=== PATIENT | female | born 1965 | race American Indian/Alaskan Native ===

== ENCOUNTER 2017-09-24 19:15 | Inpatient (IN) | payer MEDICARE ==
[2017-09-24 19:53] LABS: Basophils % (Auto) 0.2 % (0.0-1.8); Hematocrit 47.9 % (30.3-42.9); Hemoglobin 16.1 gm/dl (10.1-14.3); Mean Corpuscular HGB Conc 34 % (30-34); Mean Corpuscular Hemoglobin 31 pg (28-32); Mean Corpuscular Volume 93 fl (79-97); Platelet Count 269 K/mm3 (140-440); Red Blood Count 5.15 M/mm3 (3.65-5.03); Red Cell Distribution Width 15.2 % (13.2-15.2); White Blood Count 18.7 K/mm3 (4.5-11.0)
[2017-09-24 20:15] LABS: Alanine Aminotransferase 14 units/L (7-56); Albumin 4.9 g/dL (3.9-5); Albumin/Globulin Ratio 1.4 %; Alkaline Phosphatase 75 units/L (35-129); Anion Gap 28 mmol/L; BUN/Creatinine Ratio 21; Blood Urea Nitrogen 15 mg/dL (7-17); Carbon Dioxide 23 mmol/L (22-30); Chloride 86.1 mmol/L (98-107); Glucose 474 mg/dL (65-100); Potassium 3.7 mmol/L (3.6-5.0); Sodium 133 mmol/L (137-145); Total Protein 8.3 g/dL (6.3-8.2)
[2017-09-24 21:28] LABS: Urine Drugs of Abuse Note Disclamer
[2017-09-24 21:38] LABS: Bilirubin,Urine NEG (Negative); Blood,Urine NEG (Negative); Ketones,Urine 20 mg/dL (Negative); Leukocyte Esterase,Urine NEG (Negative); Nitrite,Urine NEG (Negative); Urobilinogen,Urine < 2.0 mg/dL (<2.0)
[2017-09-24] MEDS ORDERED: NACL 0.9% 1000 ML 1,000 ML ONE (21:45)
[2017-09-24] MEDS ORDERED: NACL 0.9% 1000 ML 1,000 ML IV ONE (21:54)
--- NOTE | 2017-09-24 22:54 | XRay Report ---
FINAL REPORT EXAM: XR CXR CLINICAL INDICATIONS: SOB FINDINGS: Frontal and lateral views of the chest were acquired. The heart is normal in size. The lungs appear clear. The pulmonary vasculature is within normal limits. IMPRESSION: NO ACTIVE DISEASE IN THE CHEST
[2017-09-25] MEDS ORDERED: MORPHINE IV ONE (00:13)
[2017-09-25] MEDS ORDERED: ZOFRAN IV ONE (00:13)
--- NOTE | 2017-09-25 00:19 | Emergency Department Report ---
<PASTORA GARCIA T - Last Filed: 09/25/17 03:07> ED Abdominal Pain HPI - General Chief Complaint: Dyspnea/Respdistress Stated Complaint: SOB Time Seen by Provider: 09/24/17 23:53 Source: patient Mode of arrival: Ambulatory Limitations: No Limitations - History of Present Illness Initial Comments: 52 yo female who comes in today due to abdominal pain. She states that she has had this pain as well as not being able to eat times three days. Denies any surgical history, but does admit to a history of diabetes and hypertension. Denies any dysuria, bloody stools, or diarrhea. MD Complaint: abdominal pain -: days(s) (3) Location: diffuse Radiation: none Migration to: no migration Severity: moderate Severity scale (0 -10): 6 Quality: aching, sharp Consistency: constant Improves With: nothing Worsens With: eating Context: other (none) Associated Symptoms: nausea, vomiting Treatments Prior to Arrival: other (none) - Related Data Home Medications Medication Instructions Recorded Confirmed Last Taken Benztropine [Cogentin] 1 mg PO BID 09/25/17 09/25/17 Unknown LORazepam [Ativan] 0.5 mg PO BID 09/25/17 09/25/17 Unknown Perphenazine 8 mg PO QAM 09/25/17 09/25/17 Unknown Perphenazine 16 mg PO QHS 09/25/17 09/25/17 Unknown Quetiapine Fumarate [Seroquel] 400 mg PO BID 09/25/17 09/25/17 Unknown Simvastatin 20 mg PO QHS 09/25/17 09/25/17 Unknown glipiZIDE [Glipizide] 5 mg PO BID 09/25/17 09/25/17 Unknown metFORMIN [Glucophage] 1,000 mg PO BID 09/25/17 09/25/17 Unknown Allergies Allergy/AdvReac Type Severity Reaction Status Date / Time No Known Allergies Allergy Verified 09/24/17 19:21 ED Review of Systems ROS: Stated complaint: SOB Other details as noted in HPI Constitutional: denies: chills, fever Eyes: denies: eye pain, eye discharge, vision change ENT: denies: ear pain, throat pain Respiratory: denies: cough, shortness of breath, wheezing Cardiovascular: denies: chest pain, palpitations Endocrine: no symptoms reported Gastrointestinal: as per HPI, abdominal pain, nausea Genitourinary: denies: urgency, dysuria, discharge Musculoskeletal: denies: back pain, joint swelling, arthralgia Skin: denies: rash, lesions Neurological: denies: headache, weakness, paresthesias Psychiatric: denies: anxiety, depression Hematological/Lymphatic: denies: easy bleeding, easy bruising ED Past Medical Hx - Past Medical History Previous Medical History?: Yes Hx Psychiatric Treatment: Yes Additional medical history: Heart problem - Surgical History Past Surgical History?: Yes - Social History Smoking Status: Never Smoker Substance Use Type: None - Medications Home Medications: Home Medications Medication Instructions Recorded Confirmed Last Taken Type Benztropine [Cogentin] 1 mg PO BID 09/25/17 09/25/17 Unknown History LORazepam [Ativan] 0.5 mg PO BID 09/25/17 09/25/17 Unknown History Perphenazine 8 mg PO QAM 09/25/17 09/25/17 Unknown History Perphenazine 16 mg PO QHS 09/25/17 09/25/17 Unknown History Quetiapine Fumarate [Seroquel] 400 mg PO BID 09/25/17 09/25/17 Unknown History Simvastatin 20 mg PO QHS 09/25/17 09/25/17 Unknown History glipiZIDE [Glipizide] 5 mg PO BID 09/25/17 09/25/17 Unknown History metFORMIN [Glucophage] 1,000 mg PO BID 09/25/17 09/25/17 Unknown History ED Physical Exam - General Limitations: No Limitations General appearance: anxious - Head Head exam: Present: atraumatic, normocephalic - Eye Eye exam: Present: normal appearance - ENT ENT exam: Present: mucous membranes moist - Neck Neck exam: Present: normal inspection - Respiratory Respiratory exam: Present: normal lung sounds bilaterally. Absent: respiratory distress - Cardiovascular Cardiovascular Exam: Present: regular rate, normal rhythm. Absent: systolic murmur, diastolic murmur, rubs, gallop - GI/Abdominal GI/Abdominal exam: Present: tenderness (diffusely ), hypoactive bowel sounds - Rectal Rectal exam: Present: deferred - Extremities Exam Extremities exam: Present: normal inspection - Back Exam Back exam: Present: normal inspection - Neurological Exam Neurological exam: Present: alert, oriented X3 - Psychiatric Psychiatric exam: Present: anxious - Skin Skin exam: Present: warm, dry, intact, normal color. Absent: rash ED Course Vital Signs 09/24/17 09/24/17 09/24/17 19:21 21:45 23:09 Temperature 99.6 F 99.0 F Pulse Rate 89 81 Respiratory 24 16 18 Rate Blood Pressure 179/103 154/98 [Right] O2 Sat by Pulse 97 98 99 Oximetry 09/25/17 01:46 Temperature Pulse Rate Respiratory 18 Rate Blood Pressure [Right] O2 Sat by Pulse Oximetry - Reevaluation(s) Reevaluation #1: 09/25/17 02:41 I spoke with the hospitalist about admitting the patient. Imaging pending. Care transferred to Dr. Pool. ED Medical Decision Making - Lab Data Result diagrams: 09/24/17 19:35 09/24/17 19:35 - EKG Data -: EKG Interpreted by Me EKG shows normal: sinus rhythm Rate: normal - EKG Data When compared to previous EKG there are: previous EKG unavailable Interpretation: no acute changes - Radiology Data Radiology results: report reviewed Chest radiograph-negative for any acute pathology - Medical Decision Making Altered mental status Hyperglycemia/diabetes mellitus Dehydration - Differential Diagnosis altered mental status, hyperglycemia/diabetes mellitus, dehydration Critical care attestation.: If time is entered above; I have spent that time in minutes in the direct care of this critically ill patient, excluding procedure time. ED Disposition Clinical Impression: Abdominal pain Altered mental state Qualifiers: Altered mental status type: unspecified Qualified Code(s): R41.82 - Altered mental status, unspecified Disposition: DC-09 OP ADMIT IP TO THIS HOSP Is pt being admited?: Yes Does the pt Need Aspirin: No Condition: Stable Referrals: KENYON OLVERA MD [Primary Care Provider] - 3-5 Days <ONESIMO HUNTLEY - Last Filed: 09/25/17 06:16> ED Medical Decision Making - Lab Data Result diagrams: 09/24/17 19:35 09/24/17 19:35 - Medical Decision Making CT HEAD:NEGATIVE CT ABD/PELVIS:NEGATIVE ED Disposition Time of Disposition: 06:15 (DR LOPES PAGE AND RESULTS OF CT DISCUSSED AND SHE WILL ADMIT HER TO THE HOSPITAL)
[2017-09-25] MEDS ORDERED: NACL 0.9% 1000 ML 1,000 ML IV ONE ×2 (02:40→06:09)
--- NOTE | 2017-09-25 03:24 | Cat Scan Report ---
FINAL REPORT EXAM: CT HEAD/BRAIN WO CON HISTORY: altered mental status TECHNIQUE: Routine axial imaging was obtained of the brain without IV contrast. FINDINGS: The ventricular system is appropriate in size and is symmetric. There is no evidence of acute stroke or hemorrhage. There are no extra-axial fluid collections. The sinuses reveal mild mucosal thickening in the left maxillary sinus. The mastoid air cells are well pneumatized. The calvarium appears intact. IMPRESSION: No evidence of acute stroke or hemorrhage. Mucosal thickening in the left maxillary sinus
--- NOTE | 2017-09-25 03:32 | Cat Scan Report ---
FINAL REPORT EXAM: CT ABDOMEN PELVIS W CON HISTORY: abdominal pain TECHNIQUE: Routine axial imaging was obtained of the abdomen and pelvis following the intravenous injection of iodinated contrast. Delayed imaging was also obtained for evaluation of the kidneys and renal collecting structures. Sagittal and coronal reconstructions were reviewed FINDINGS: The lung bases are clear. Pleural fluid is not seen. The liver is normal size reveals slightly diminished attenuation suggesting hepatic steatosis. There are no focal hepatic lesions. The gallbladder, pancreas, spleen, and adrenal glands appear normal. The kidneys enhance normally. There is no evidence of hydronephrosis. The vascular structures enhance normally also. The bowel loops are normal in caliber and course. The appendix is not enlarged. There is no evidence of free fluid or adenopathy. In the pelvis the uterus and bladder appear normal. There are no adnexal masses or fluid collections. The skeletal structures reveal multilevel disc degeneration with facet arthropathy changes in the lumbar spine. IMPRESSION: No acute process in the abdomen and pelvis. Hepatic steatosis.
[2017-09-25] MEDS ORDERED: VANCOMYCIN/NS 1 GM/250 ML 1 GM/250 ML BAG IV ONE (06:12)
[2017-09-25] MEDS: ZOSYN/NS 4.5GM/100ML 4.5 GM/100 ML VIAL IV SCH ×2 (07:53→15:15)
--- NOTE | 2017-09-25 08:14 | History and Physical Report ---
History of Present Illness Date of examination: 09/25/17 Date of admission: 09/25/2017 Chief complaint: chief complaint: Abdominal pain for 3 days. History of present illness: history of present illness:52-year-old -[place] female with history of hypertension, hyperlipidemia and type 2 diabetes comes in for acute abdominal pain of 3 days' duration. Pain is periumbilical and diffuse. Pain is sharp and intermittent in nature. Pain is 10 over 10 associated with nausea. no vomiting or diarrhea.No fever no chills.No exacerbating or relieving factors.First episode of pain. Review of System: Constitutional: no fever, no chills, no weight loss Ears, eyes, nose, mouth and throat: no nasal congestion, no nasal discharge, no sinus pressure, no vision change, no red eye. Neck: No neck pain or rigidity. Cardiovascular: No chest pain, no orthopnea, no palpitations, no leg swelling Respiratory: No shortness of breath, no cough, no congestion, no wheezing Gastrointestinal: abdominal pain, nausea,present no vomiting Genitourinary : no dysuria, no hematuria Musculoskeletal: no joint swelling or muscle ache Integumentary: no rash, no pruritis Neurological: no parathesias, no numbness, no tingling Endocrine: no cold or heat intolerance, no polyuria or polydipsia Hematologic/Lymphatic: no easy bruising, no easy bleeding, no gland swelling Allergic/Immunologic: no urticaria, no angioedema. Past History Past Medical History: diabetes, hypertension, hyperlipidemia Past Surgical History: No surgical history Social history: lives with family, full code Family history: hypertension Medications and Allergies Allergies Allergy/AdvReac Type Severity Reaction Status Date / Time No Known Allergies Allergy Verified 09/24/17 19:21 Home Medications Medication Instructions Recorded Confirmed Last Taken Type Benztropine [Cogentin] 1 mg PO BID 09/25/17 09/25/17 Unknown History LORazepam [Ativan] 0.5 mg PO BID 09/25/17 09/25/17 Unknown History Perphenazine 8 mg PO QAM 09/25/17 09/25/17 Unknown History Perphenazine 16 mg PO QHS 09/25/17 09/25/17 Unknown History Quetiapine Fumarate [Seroquel] 400 mg PO BID 09/25/17 09/25/17 Unknown History Simvastatin 20 mg PO QHS 09/25/17 09/25/17 Unknown History glipiZIDE [Glipizide] 5 mg PO BID 09/25/17 09/25/17 Unknown History metFORMIN [Glucophage] 1,000 mg PO BID 09/25/17 09/25/17 Unknown History Active Meds: Active Medications Sodium Chloride (Nacl 0.9% 1000 Ml) 1,000 mls @ 125 mls/hr IV ONCE ONE Stop: 09/25/17 10:39 Piperacillin Sod/Tazobactam Sod (Zosyn/Ns 4.5gm/100ml) 4.5 gm in 100 mls @ 200 mls/hr IV Q8HR MERLINE PRN Reason: Protocol Last Admin: 09/25/17 07:53 Dose: 200 mls/hr Review of Systems All systems: negative Exam - Constitutional Vitals: Temp Pulse Resp BP Pulse Ox 98.1 F 78 16 149/74 100 09/25/17 07:55 09/25/17 07:55 09/25/17 07:55 09/25/17 07:55 09/25/17 07:55 General appearance: Present: no acute distress, well-nourished - EENT Eyes: Present: PERRL ENT: hearing intact, clear oral mucosa - Neck Neck: Present: supple, normal ROM - Respiratory Respiratory effort: normal Respiratory: bilateral: CTA - Cardiovascular Rhythm: regular (80) Heart Sounds: Present: S1 & S2. Absent: rub, click - Extremities Extremities: no ischemia, pulses intact, pulses symmetrical, No edema Peripheral Pulses: within normal limits - Abdominal General gastrointestinal: Present: tender, non-distended, normal bowel sounds, other (no guarding or rigidity) Localized gastrointestinal: tender: epigastric periumbilical, guarding: epigastric periumbilical Female genitourinary: Present: deferred, normal - Integumentary Integumentary: Present: clear, warm, dry - Musculoskeletal Musculoskeletal: gait normal, strength equal bilaterally - Psychiatric Psychiatric: appropriate mood/affect, intact judgment & insight - Neurologic Neurologic: CNII-XII intact, moves all extremities - Allied Health Allied health notes reviewed: nursing, case management Results - Labs CBC & Chem 7: 09/26/17 04:09 09/24/17 19:35 Labs: Laboratory Last Values WBC 18.7 K/mm3 (4.5-11.0) H 09/24/17 19:35 RBC 5.15 M/mm3 (3.65-5.03) H 09/24/17 19:35 Hgb 16.1 gm/dl (10.1-14.3) H 09/24/17 19:35 Hct 47.9 % (30.3-42.9) H 09/24/17 19:35 MCV 93 fl (79-97) 09/24/17 19:35 MCH 31 pg (28-32) 09/24/17 19:35 MCHC 34 % (30-34) 09/24/17 19:35 RDW 15.2 % (13.2-15.2) 09/24/17 19:35 Plt Count 269 K/mm3 (140-440) 09/24/17 19:35 Lymph % (Auto) 8.7 % (13.4-35.0) L 09/24/17 19:35 Ross % (Auto) 8.1 % (0.0-7.3) H 09/24/17 19:35 Eos % (Auto) 0.0 % (0.0-4.3) 09/24/17 19:35 Baso % (Auto) 0.2 % (0.0-1.8) 09/24/17 19:35 Lymph # 1.6 K/mm3 (1.2-5.4) 09/24/17 19:35 Ross # 1.5 K/mm3 (0.0-0.8) H 09/24/17 19:35 Eos # 0.0 K/mm3 (0.0-0.4) 09/24/17 19:35 Baso # 0.0 K/mm3 (0.0-0.1) 09/24/17 19:35 Seg Neutrophils % 83.0 % (40.0-70.0) H 09/24/17 19:35 Seg Neutrophils # 15.5 K/mm3 (1.8-7.7) H 09/24/17 19:35 VBG pH 7.506 (7.320-7.420) H 09/24/17 19:35 Sodium 133 mmol/L (137-145) L 09/24/17 19:35 Potassium 3.7 mmol/L (3.6-5.0) 09/24/17 19:35 Chloride 86.1 mmol/L (98-107) L 09/24/17 19:35 Carbon Dioxide 23 mmol/L (22-30) 09/24/17 19:35 Anion Gap 28 mmol/L 09/24/17 19:35 BUN 15 mg/dL (7-17) 09/24/17 19:35 Creatinine 0.7 mg/dL (0.7-1.2) 09/24/17 19:35 Estimated GFR > 60 ml/min 09/24/17 19:35 BUN/Creatinine Ratio 21 % 09/24/17 19:35 Glucose 474 mg/dL (65-100) H 09/24/17 19:35 POC Glucose 285 (70-105) H 09/25/17 07:49 Lactic Acid 0.90 mmol/L (0.7-2.0) 09/25/17 06:23 Calcium 10.0 mg/dL (8.4-10.2) 09/24/17 19:35 Magnesium 1.90 mg/dL (1.7-2.3) 09/24/17 19:35 Total Bilirubin 0.40 mg/dL (0.1-1.2) 09/24/17 19:35 AST 12 units/L (5-40) 09/24/17 19:35 ALT 14 units/L (7-56) 09/24/17 19:35 Alkaline Phosphatase 75 units/L (35-129) 09/24/17 19:35 Troponin T < 0.010 ng/mL (0.00-0.029) 09/24/17 19:35 NT-Pro-B Natriuret Pep 293.9 pg/mL (0-900) 09/24/17 19:35 Total Protein 8.3 g/dL (6.3-8.2) H 09/24/17 19:35 Albumin 4.9 g/dL (3.9-5) 09/24/17 19:35 Albumin/Globulin Ratio 1.4 % 09/24/17 19:35 TSH 1.770 mlU/mL (0.270-4.200) 09/24/17 19:35 HCG, Qual Negative (Negative) 09/24/17 19:35 Urine Color Yellow (Yellow) 09/24/17 21:25 Urine Turbidity Clear (Clear) 09/24/17 21:25 Urine pH 6.0 (5.0-7.0) 09/24/17 21:25 Ur Specific [place] 1.037 (1.003-1.030) H 09/24/17 21:25 Urine Protein 100 mg/dl mg/dL (Negative) 09/24/17 21:25 Urine Glucose (UA) >=500 mg/dL (Negative) 09/24/17 21:25 Urine Ketones 20 mg/dL (Negative) 09/24/17 21:25 Urine Blood Neg (Negative) 09/24/17 21:25 Urine Nitrite Neg (Negative) 09/24/17 21:25 Urine Bilirubin Neg (Negative) 09/24/17 21:25 Urine Urobilinogen < 2.0 mg/dL (<2.0) 09/24/17 21:25 Ur Leukocyte Esterase Neg (Negative) 09/24/17 21:25 Urine WBC (Auto) 1.0 /HPF (0.0-6.0) 09/24/17 21:25 Urine RBC (Auto) 3.0 /HPF (0.0-6.0) 09/24/17 21:25 U Epithel Cells (Auto) 3.0 /HPF (0-13.0) 09/24/17 21:25 Salicylates < 0.3 mg/dL (2.8-20.0) L 09/24/17 19:35 Urine Opiates Screen Presumptive negative 09/24/17 21:25 Urine Methadone Screen Presumptive negative 09/24/17 21:25 Acetaminophen < 15.0 ug/mL (10.0-30.0) 09/24/17 19:35 Ur Barbiturates Screen Presumptive negative 09/24/17 21:25 Ur Phencyclidine Scrn Presumptive negative 09/24/17 21:25 Ur Amphetamines Screen Presumptive negative 09/24/17 21:25 U Benzodiazepines Scrn Presumptive negative 09/24/17 21:25 Urine Cocaine Screen Presumptive negative 09/24/17 21:25 U Marijuana (THC) Screen Presumptive negative 09/24/17 21:25 Drugs of Abuse Note Disclamer 09/24/17 21:25 Plasma/Serum Alcohol < 0.01 gm% (0-0.07) 09/24/17 19:35 Short CBC 09/26/17 Range/Units 04:09 WBC 10.1 (4.5-11.0) K/mm3 Hgb 14.2 (10.1-14.3) gm/dl Hct 42.2 (30.3-42.9) % Plt Count 190 (140-440) K/mm3 - Imaging and Cardiology CT scan - abdomen: report reviewed (negative no abnormal findings) CT Scan - head: report reviewed (negative no abnormal findings) Assessment and Plan Advance Directives: Yes (full code) VTE prophylaxis?: Chemical Plan of care discussed with patient/family: Yes - Patient Problems (1) Acute abdominal pain Current Visit: Yes Status: Acute Plan to address problem: patient is tender all over the abdomen. CAT scan is noncontributory. Will reevaluate. Symptomatic treatment in the mean Not consistent with cholecystitis . Possible left lower quadrant diverticulosis. Surgical consult by requested (2) Hypertension Current Visit: Yes Status: Chronic Qualifiers: Hypertension type: essential hypertension Qualified Code(s): I10 - Essential (primary) hypertension Plan to address problem: continue antihypertensives. (3) T2DM (type 2 diabetes mellitus) Current Visit: Yes Status: Chronic Qualifiers: Diabetes mellitus complication status: without complication Plan to address problem: check hemoglobin A1c and coverage. (4) Bipolar disorder Current Visit: Yes Status: Chronic Plan to address problem: patient is to get seroquel 400mg twice a day (5) Hyperlipidemia Current Visit: Yes Status: Chronic Qualifiers: Hyperlipidemia type: mixed hyperlipidemia Qualified Code(s): E78.2 - Mixed hyperlipidemia Plan to address problem: continue statins in the form of simvastatin (6) DVT prophylaxis Current Visit: Yes Status: Acute Plan to address problem: on Lovenox 40 mg subcutaneous daily or warfarin
[2017-09-25] MEDS ORDERED: DULCOLAX PR PRN (08:15)
[2017-09-25] MEDS ORDERED: TYLENOL PO PRN (08:15)
[2017-09-25] MEDS ORDERED: MILK OF MAGNESIA PO PRN (08:15)
[2017-09-25] MEDS ORDERED: ZOFRAN IV PRN (08:15)
[2017-09-25] MEDS ORDERED: NON-FORMULARY (Quetiapine Fumarate [Seroquel] 400 MG) PO SCH (10:00)
[2017-09-25] MEDS: LOVENOX SUB-Q SCH (17:45)
[2017-09-25] MEDS: MORPHINE IV PRN (21:01)
[2017-09-26 04:48] LABS: Basophils % (Auto) 0.2 % (0.0-1.8); Eosinophils % (Auto) 0.2 % (0.0-4.3); Hematocrit 42.2 % (30.3-42.9); Hemoglobin 14.2 gm/dl (10.1-14.3); Mean Corpuscular HGB Conc 34 % (30-34); Mean Corpuscular Hemoglobin 32 pg (28-32); Mean Corpuscular Volume 94 fl (79-97); Platelet Count 190 K/mm3 (140-440); Red Blood Count 4.51 M/mm3 (3.65-5.03); Red Cell Distribution Width 15.1 % (13.2-15.2); White Blood Count 10.1 K/mm3 (4.5-11.0)
[2017-09-26 05:15] LABS: Alanine Aminotransferase 11 units/L (7-56); Albumin 3.8 g/dL (3.9-5); Albumin/Globulin Ratio 1.3 %; Alkaline Phosphatase 56 units/L (35-129); Anion Gap 16 mmol/L; BUN/Creatinine Ratio 20; Blood Urea Nitrogen 10 mg/dL (7-17); Calcium 8.7 mg/dL (8.4-10.2); Carbon Dioxide 27 mmol/L (22-30); Chloride 99.9 mmol/L (98-107); Glucose 259 mg/dL (65-100); Sodium 140 mmol/L (137-145); Total Protein 6.8 g/dL (6.3-8.2)
[2017-09-26] MEDS: ZOSYN/NS 4.5GM/100ML 4.5 GM/100 ML VIAL IV SCH ×4 (05:41→23:56)
[2017-09-26] MEDS: NACL 0.9% 1000 ML 1,000 ML IV SCH ×2 (05:59→20:07)
--- NOTE | 2017-09-26 09:15 | Consultation ---
HISTORY OF PRESENT ILLNESS: This patient apparently was admitted by Dr. Narvaez because of nonspecific pain to the throat and to the neck, to the abdomen, to the chest and the pelvic area. The patient had multiple CT scans including a head CT, abdomen and pelvis, all were negative. Her chest x-ray was negative. To me, examination did not reveal anything specific. I was told that she was in the psychiatric hospital on multiple occasions in the past and she is on Ativan and on Seroquel. She is a known case of diabetic. She is on glipizide for that. She is on metformin. Her main complaint is pain in the throat area. ALLERGIES: Allergic reaction was denied. PHYSICAL EXAMINATION: GENERAL: A preserved obese black female. She is in no distress. Her main complaint was pain in the neck area. HEAD AND NECK: Neck is supple. BREASTS: Symmetric. No evidence of specific masses. CHEST: Essentially clear to me. HEART: Sounds are normal. ABDOMEN: Protuberant, soft, benign. EXTREMITIES: Showed no edema. IMPRESSION AND PLAN: Abdominal pain and throat pain, the etiology of which is unknown. I do not think they are related to each other. Noted, however, her sugar was high at 495. I believe this needs to be addressed and her white count is 18.7. Continue that per Dr. Narvaez to address. There is no evidence of surgical problem at the present time with this patient. JOB# [id number] SAVANNAH/ZO
--- NOTE | 2017-09-26 10:35 | Ultrasound Report ---
Sonogram right upper quadrant colon History: Upper abdominal pain. Findings: Normal aorta measures 1.8 cm. The fatty liver. No intrahepatic or extrahepatic duct dilatation. Common bile duct diameter 5.1 mm. Gallbladder wall thickness 1.6 mm. No calculi in the gallbladder. Right kidney 7.6 x 4.9 x 5.9 cm. Cortical thickness 1.7 cm. Pancreas obscured by bowel gas. Impression: Fatty liver.
[2017-09-26] MEDS ORDERED: D50W (25GM) Syringe IV PRN (13:19)
--- NOTE | 2017-09-26 13:20 | Progress Note ---
Subjective Narrative: doing OK abd soft Pt is hungry , no neck pain ,sonogram thick GB wall 1.5 mm , sugar 295 , will check with Hida scan . will cver sugar with insulin , Objective Vital Signs - 12hr 09/26/17 09/26/17 09/26/17 04:17 07:27 12:04 Temperature 99.1 F 99.0 F 98.1 F Pulse Rate 80 73 75 Respiratory 20 18 20 Rate Blood Pressure 133/70 140/90 144/80 O2 Sat by Pulse 99 95 91 Oximetry - Labs 09/26/17 04:09 09/26/17 04:09 Diabetes panel 09/26/17 Range/Units 04:09 Sodium 140 D (137-145) mmol/L Potassium 3.0 L (3.6-5.0) mmol/L Chloride 99.9 (98-107) mmol/L Carbon Dioxide 27 (22-30) mmol/L BUN 10 (7-17) mg/dL Creatinine 0.5 L (0.7-1.2) mg/dL Glucose 259 H (65-100) mg/dL Calcium 8.7 (8.4-10.2) mg/dL AST 11 (5-40) units/L ALT 11 (7-56) units/L Alkaline Phosphatase 56 (35-129) units/L Total Protein 6.8 (6.3-8.2) g/dL Albumin 3.8 L (3.9-5) g/dL Calcium panel 09/26/17 Range/Units 04:09 Calcium 8.7 (8.4-10.2) mg/dL Albumin 3.8 L (3.9-5) g/dL Pituitary panel 09/26/17 Range/Units 04:09 Sodium 140 D (137-145) mmol/L Potassium 3.0 L (3.6-5.0) mmol/L Chloride 99.9 (98-107) mmol/L Carbon Dioxide 27 (22-30) mmol/L BUN 10 (7-17) mg/dL Creatinine 0.5 L (0.7-1.2) mg/dL Glucose 259 H (65-100) mg/dL Calcium 8.7 (8.4-10.2) mg/dL Adrenal panel 09/26/17 Range/Units 04:09 Sodium 140 D (137-145) mmol/L Potassium 3.0 L (3.6-5.0) mmol/L Chloride 99.9 (98-107) mmol/L Carbon Dioxide 27 (22-30) mmol/L BUN 10 (7-17) mg/dL Creatinine 0.5 L (0.7-1.2) mg/dL Glucose 259 H (65-100) mg/dL Calcium 8.7 (8.4-10.2) mg/dL Total Bilirubin 0.40 (0.1-1.2) mg/dL AST 11 (5-40) units/L ALT 11 (7-56) units/L Alkaline Phosphatase 56 (35-129) units/L Total Protein 6.8 (6.3-8.2) g/dL Albumin 3.8 L (3.9-5) g/dL
[2017-09-26] MEDS: NOVOLOG SUB-Q SCH ×2 (13:52→16:40)
[2017-09-26] MEDS: LOVENOX SUB-Q SCH (13:56)
[2017-09-26] MEDS ORDERED: APRESOLINE IV PRN (14:07)
[2017-09-26] MEDS: AUGMENTIN 875 MG PO SCH ×2 (14:50→23:57)
[2017-09-26] MEDS: MORPHINE IV PRN (15:26)
[2017-09-26] MEDS ORDERED: GLUCOPHAGE PO SCH (20:00)
[2017-09-26] MEDS: GLUCOTROL PO SCH (20:06)
--- NOTE | 2017-09-26 20:48 | Progress Note ---
Assessment and Plan Assessment and plan: 52-year-old -[place] female with history of hypertension, hyperlipidemia and type 2 diabetes comes in for acute abdominal pain of 3 days' duration. Pain is periumbilical and diffuse. Pain is sharp and intermittent in nature. Pain is 10 over 10 associated with nausea. no vomiting or diarrhea.No fever no chills.No exacerbating or relieving factors Peritoneal irritation- Resolved Hypertension urgency- Resolving Atypical chest pain- Likely secondary to GERD Diabetes Mellitus with Hyperglycemia Hyperlipidemia Pleural nodule Bipolar Disorder Hypertension. Plan: Supportive care Pain control Gall bladder evaluation D.W surgery Resume home med CT scan obtained and negative for PE Restart insulin and monitor blood sugar pain control GI cocktail dvt/gi Prophy History Interval history: Patient seen and examined reports reflux type pain, Denies any abdominal pain, denies chest pain, nausea, or vomiting. Hospitalist Physical - Constitutional Vitals: Temp Pulse Resp BP Pulse Ox 99.8 F H 77 16 130/65 91 09/26/17 18:47 09/26/17 18:47 09/26/17 18:47 09/26/17 18:47 09/26/17 18:47 General appearance: Present: no acute distress, well-nourished, obese - EENT Eyes: Present: PERRL, EOM intact ENT: hearing intact - Neck Neck: Present: supple, normal ROM - Respiratory Respiratory effort: normal Respiratory: bilateral: CTA - Cardiovascular Rhythm: regular Heart Sounds: Present: S1 & S2. Absent: systolic murmur, diastolic murmur - Extremities Extremities: no ischemia, pulses intact, pulses symmetrical, No edema, normal temperature, normal color, Full ROM Peripheral Pulses: within normal limits - Abdominal General gastrointestinal: soft, tender, non-distended Localized gastrointestinal: tender: RUQ - Integumentary Integumentary: Present: clear, warm, dry - Psychiatric Psychiatric: appropriate mood/affect, cooperative - Neurologic Neurologic: CNII-XII intact, moves all extremities Results - Labs CBC & Chem 7: 09/27/17 05:19 09/27/17 04:25 Labs: Laboratory Last Values WBC 10.1 K/mm3 (4.5-11.0) 09/26/17 04:09 RBC 4.51 M/mm3 (3.65-5.03) 09/26/17 04:09 Hgb 14.2 gm/dl (10.1-14.3) 09/26/17 04:09 Hct 42.2 % (30.3-42.9) 09/26/17 04:09 MCV 94 fl (79-97) 09/26/17 04:09 MCH 32 pg (28-32) 09/26/17 04:09 MCHC 34 % (30-34) 09/26/17 04:09 RDW 15.1 % (13.2-15.2) 09/26/17 04:09 Plt Count 190 K/mm3 (140-440) 09/26/17 04:09 Lymph % (Auto) 29.3 % (13.4-35.0) 09/26/17 04:09 [place] % (Auto) 10.8 % (0.0-7.3) H 09/26/17 04:09 Eos % (Auto) 0.2 % (0.0-4.3) 09/26/17 04:09 Baso % (Auto) 0.2 % (0.0-1.8) 09/26/17 04:09 Lymph # 3.0 K/mm3 (1.2-5.4) 09/26/17 04:09 [place] # 1.1 K/mm3 (0.0-0.8) H 09/26/17 04:09 Eos # 0.0 K/mm3 (0.0-0.4) 09/26/17 04:09 Baso # 0.0 K/mm3 (0.0-0.1) 09/26/17 04:09 Seg Neutrophils % 59.5 % (40.0-70.0) 09/26/17 04:09 Seg Neutrophils # 6.0 K/mm3 (1.8-7.7) 09/26/17 04:09 D-Dimer 481.41 ng/mlDDU (0-234) H 09/26/17 14:37 VBG pH 7.506 (7.320-7.420) H 09/24/17 19:35 Sodium 140 mmol/L (137-145) D 09/26/17 04:09 Potassium 3.0 mmol/L (3.6-5.0) L 09/26/17 04:09 Chloride 99.9 mmol/L (98-107) 09/26/17 04:09 Carbon Dioxide 27 mmol/L (22-30) 09/26/17 04:09 Anion Gap 16 mmol/L 09/26/17 04:09 BUN 10 mg/dL (7-17) 09/26/17 04:09 Creatinine 0.5 mg/dL (0.7-1.2) L 09/26/17 04:09 Estimated GFR > 60 ml/min 09/26/17 04:09 BUN/Creatinine Ratio 20 % 09/26/17 04:09 Glucose 259 mg/dL (65-100) H 09/26/17 04:09 POC Glucose 247 (70-105) H 09/26/17 16:32 Hemoglobin A1c 10.4 % (4-6) H 09/25/17 08:48 Lactic Acid 0.90 mmol/L (0.7-2.0) 09/25/17 06:23 Calcium 8.7 mg/dL (8.4-10.2) 09/26/17 04:09 Magnesium 1.90 mg/dL (1.7-2.3) 09/24/17 19:35 Total Bilirubin 0.40 mg/dL (0.1-1.2) 09/26/17 04:09 AST 11 units/L (5-40) 09/26/17 04:09 ALT 11 units/L (7-56) 09/26/17 04:09 Alkaline Phosphatase 56 units/L (35-129) 09/26/17 04:09 Troponin T < 0.010 ng/mL (0.00-0.029) 09/26/17 14:37 NT-Pro-B Natriuret Pep 293.9 pg/mL (0-900) 09/24/17 19:35 Total Protein 6.8 g/dL (6.3-8.2) 09/26/17 04:09 Albumin 3.8 g/dL (3.9-5) L 09/26/17 04:09 Albumin/Globulin Ratio 1.3 % 09/26/17 04:09 TSH 1.770 mlU/mL (0.270-4.200) 09/24/17 19:35 HCG, Qual Negative (Negative) 09/24/17 19:35 Urine Color Yellow (Yellow) 09/24/17 21:25 Urine Turbidity Clear (Clear) 09/24/17 21:25 Urine pH 6.0 (5.0-7.0) 09/24/17 21:25 Ur Specific [place] 1.037 (1.003-1.030) H 09/24/17 21:25 Urine Protein 100 mg/dl mg/dL (Negative) 09/24/17 21:25 Urine Glucose (UA) >=500 mg/dL (Negative) 09/24/17 21:25 Urine Ketones 20 mg/dL (Negative) 09/24/17 21:25 Urine Blood Neg (Negative) 09/24/17 21:25 Urine Nitrite Neg (Negative) 09/24/17 21:25 Urine Bilirubin Neg (Negative) 09/24/17 21:25 Urine Urobilinogen < 2.0 mg/dL (<2.0) 09/24/17 21:25 Ur Leukocyte Esterase Neg (Negative) 09/24/17 21:25 Urine WBC (Auto) 1.0 /HPF (0.0-6.0) 09/24/17 21:25 Urine RBC (Auto) 3.0 /HPF (0.0-6.0) 09/24/17 21:25 U Epithel Cells (Auto) 3.0 /HPF (0-13.0) 09/24/17 21:25 Salicylates < 0.3 mg/dL (2.8-20.0) L 09/24/17 19:35 Urine Opiates Screen Presumptive negative 09/24/17 21:25 Urine Methadone Screen Presumptive negative 09/24/17 21:25 Acetaminophen < 15.0 ug/mL (10.0-30.0) 09/24/17 19:35 Ur Barbiturates Screen Presumptive negative 09/24/17 21:25 Ur Phencyclidine Scrn Presumptive negative 09/24/17 21:25 Ur Amphetamines Screen Presumptive negative 09/24/17 21:25 U Benzodiazepines Scrn Presumptive negative 09/24/17 21:25 Urine Cocaine Screen Presumptive negative 09/24/17 21:25 U Marijuana (THC) Screen Presumptive negative 09/24/17 21:25 Drugs of Abuse Note Disclamer 09/24/17 21:25 Plasma/Serum Alcohol < 0.01 gm% (0-0.07) 09/24/17 19:35 - Imaging and Cardiology CT scan - chest: image reviewed (NO PE)
[2017-09-26] MEDS ORDERED: TRILAFON PO SCH (22:00)
[2017-09-26] MEDS: LEVEMIR SUB-Q SCH (22:00)
[2017-09-26] MEDS ORDERED: NON-FORMULARY (Simvastatin [Simvastatin] 20 MG) PO SCH (22:00)
[2017-09-26] MEDS ORDERED: NACL ONE (22:21)
--- NOTE | 2017-09-26 23:35 | Cat Scan Report ---
FINAL REPORT EXAM: CT ANGIO CHEST HISTORY: elevated for pe. dyspena COMPARISON: Chest x-ray from September 24, 2017. TECHNIQUE: Contiguous axial images were obtained. Additional sagittal and coronal reformatted images were obtained. Administration of IV contrast given per institution protocol. Images submitted for interpretation. 100 cc Omnipaque 350. FINDINGS: Heart borderline enlarged. Thoracic aorta normal in caliber. No dissection. No pulmonary embolus. Small pocket a gas within the main pulmonary trunk likely relating to IV access. There are few prominent but technically not enlarged intrathoracic lymph nodes likely reactive. For example there is a right hilar lymph node measuring 14 x 8 millimeters. No enlarged axillary lymph nodes. Hypodense lesion at the inferior posterior margin right thyroid lobe measuring 1.3 x 0.7 centimeters. Mild linear atelectasis at the lung bases. At the lateral margin right upper lobe there is a subpleural nodule measuring 3-4 millimeters (series 3, image 34). No dense consolidation or effusion. Fatty infiltration of the liver. Mild wall thickening the distal esophagus which may relate to its decompressed state. Tiny hiatal hernia. Mild nodular thickening of adrenal glands. Mild degenerative changes of the thoracic spine. IMPRESSION: No pulmonary embolus. Thoracic aorta normal in caliber. No dissection. Mild linear atelectasis at the lung bases. No dense consolidation or effusion. 3 millimeter subpleural nodule right upper lobe which may be postinflammatory. If the patient has risk factors such as smoking, CT of the chest in 12 months would be suggested to ensure stability. Hypodense right thyroid lobe nodule. This could be further evaluated by thyroid ultrasound on a nonemergent basis.
[2017-09-26] MEDS: PRAVACHOL PO SCH (23:57)
[2017-09-26] MEDS: COGENTIN PO SCH (23:57)
[2017-09-26] MEDS: ATIVAN PO SCH (23:57)
[2017-09-26] MEDS: TRILAFON PO SCH (23:58)
[2017-09-27] MEDS: NOVOLOG SUB-Q SCH ×5 (00:14→22:04)
[2017-09-27 04:48] LABS: BUN/Creatinine Ratio 18; Blood Urea Nitrogen 9 mg/dL (7-17); Calcium 8.4 mg/dL (8.4-10.2); Carbon Dioxide 19 mmol/L (22-30); Chloride 100.8 mmol/L (98-107); Glucose 99 mg/dL (65-100); Sodium 135 mmol/L (137-145)
[2017-09-27 04:49] LABS: Anion Gap 19 mmol/L
[2017-09-27 05:36] LABS: Hematocrit 40.6 % (30.3-42.9); Hemoglobin 13.6 gm/dl (10.1-14.3); Mean Corpuscular HGB Conc 34 % (30-34); Mean Corpuscular Hemoglobin 32 pg (28-32); Mean Corpuscular Volume 94 fl (79-97); Platelet Count 180 K/mm3 (140-440); Red Blood Count 4.33 M/mm3 (3.65-5.03); Red Cell Distribution Width 14.8 % (13.2-15.2); White Blood Count 6.8 K/mm3 (4.5-11.0)
[2017-09-27] MEDS: ZOSYN/NS 4.5GM/100ML 4.5 GM/100 ML VIAL IV SCH (05:37)
[2017-09-27] MEDS ORDERED: TRILAFON PO SCH (10:00)
[2017-09-27] MEDS: NACL 0.9% 1000 ML 1,000 ML IV SCH (10:00)
[2017-09-27] MEDS: COGENTIN PO SCH ×2 (10:13→21:52)
[2017-09-27] MEDS: AUGMENTIN 875 MG PO SCH (10:13)
[2017-09-27] MEDS: GLUCOTROL PO SCH ×2 (10:13→18:18)
[2017-09-27] MEDS: TRILAFON PO SCH ×2 (10:14→21:52)
[2017-09-27] MEDS: ATIVAN PO SCH ×2 (10:14→21:52)
[2017-09-27] MEDS: LOVENOX SUB-Q SCH (10:14)
[2017-09-27] MEDS: FLAGYL PO SCH ×2 (14:10→21:52)
[2017-09-27] MEDS: PEPCID PO SCH ×2 (15:00→21:52)
--- NOTE | 2017-09-27 15:56 | Nuclear Medicine Report ---
Nuclear gallbladder scan: Epigastric pain and thickened gallbladder wall. Following injection of radionuclide imaging of the liver anteriorly is unremarkable. There is prompt excretion of activity in an apparently normal sized CBD with rapid excretion into the proximal bowel and partial filling of the gallbladder at 20 minutes. Impression: No evidence of cystic duct obstruction.
--- NOTE | 2017-09-27 18:39 | Progress Note ---
Assessment and Plan Assessment and plan: 52-year-old -[place] female with history of hypertension, hyperlipidemia and type 2 diabetes comes in for acute abdominal pain of 3 days' duration. Pain is periumbilical and diffuse. Pain is sharp and intermittent in nature. Pain is 10 over 10 associated with nausea. no vomiting or diarrhea.No fever no chills.No exacerbating or relieving factors Peritoneal irritation- Resolved Diarrhea- Possible colitis R/O CDIFF. Hypertension urgency- Resolving Atypical chest pain- Likely secondary to GERD Diabetes Mellitus with Hyperglycemia Hyperlipidemia Pleural nodule Bipolar Disorder Hypertension. Plan: Supportive care Pain control Isolation till C.DIFF ruled out Gall bladder evaluation D.W surgery Resume home med CT scan obtained and negative for PE Restart insulin and monitor blood sugar pain control GI cocktail dvt/gi Prophy History Interval history: Patient seen and examined reports reflux type pain, Nursing staff reports diarrhea. "Patients tells me that the bathroom condition has been bad where she has been staying and she has been standing to poop" Hospitalist Physical - Physical exam Narrative exam: General appearance: Present: no acute distress, well-nourished, obese - EENT Eyes: Present: PERRL, EOM intact ENT: hearing intact - Neck Neck: Present: supple, normal ROM - Respiratory Respiratory effort: normal Respiratory: bilateral: CTA - Cardiovascular Rhythm: regular Heart Sounds: Present: S1 & S2. Absent: systolic murmur, diastolic murmur - Extremities Extremities: no ischemia, pulses intact, pulses symmetrical, No edema, normal temperature, normal color, Full ROM Peripheral Pulses: within normal limits - Abdominal General gastrointestinal: soft, tender, non-distended Localized gastrointestinal: tender: RUQ - Integumentary Integumentary: Present: clear, warm, dry - Psychiatric Psychiatric: appropriate mood/affect, cooperative - Neurologic Neurologic: CNII-XII intact, moves all extremities - Constitutional Vitals: Temp Pulse Resp BP Pulse Ox 99.4 F 77 20 139/67 99 09/27/17 17:25 09/27/17 17:26 09/27/17 17:25 09/27/17 17:25 09/27/17 17:26 General appearance: Present: no acute distress, well-nourished, obese Results - Labs CBC & Chem 7: 09/27/17 05:19 09/27/17 04:25 Labs: Laboratory Last Values WBC 6.8 K/mm3 (4.5-11.0) 09/27/17 05:19 RBC 4.33 M/mm3 (3.65-5.03) 09/27/17 05:19 Hgb 13.6 gm/dl (10.1-14.3) 09/27/17 05:19 Hct 40.6 % (30.3-42.9) 09/27/17 05:19 MCV 94 fl (79-97) 09/27/17 05:19 MCH 32 pg (28-32) 09/27/17 05:19 MCHC 34 % (30-34) 09/27/17 05:19 RDW 14.8 % (13.2-15.2) 09/27/17 05:19 Plt Count 180 K/mm3 (140-440) 09/27/17 05:19 Lymph % (Auto) 29.3 % (13.4-35.0) 09/26/17 04:09 [place] % (Auto) 10.8 % (0.0-7.3) H 09/26/17 04:09 Eos % (Auto) 0.2 % (0.0-4.3) 09/26/17 04:09 Baso % (Auto) 0.2 % (0.0-1.8) 09/26/17 04:09 Lymph # 3.0 K/mm3 (1.2-5.4) 09/26/17 04:09 [place] # 1.1 K/mm3 (0.0-0.8) H 09/26/17 04:09 Eos # 0.0 K/mm3 (0.0-0.4) 09/26/17 04:09 Baso # 0.0 K/mm3 (0.0-0.1) 09/26/17 04:09 Seg Neutrophils % 59.5 % (40.0-70.0) 09/26/17 04:09 Seg Neutrophils # 6.0 K/mm3 (1.8-7.7) 09/26/17 04:09 D-Dimer 481.41 ng/mlDDU (0-234) H 09/26/17 14:37 VBG pH 7.506 (7.320-7.420) H 09/24/17 19:35 Sodium 135 mmol/L (137-145) L 09/27/17 04:25 Potassium 4.0 mmol/L (3.6-5.0) D 09/27/17 04:25 Chloride 100.8 mmol/L (98-107) 09/27/17 04:25 Carbon Dioxide 19 mmol/L (22-30) L D 09/27/17 04:25 Anion Gap 19 mmol/L 09/27/17 04:25 BUN 9 mg/dL (7-17) 09/27/17 04:25 Creatinine 0.5 mg/dL (0.7-1.2) L 09/27/17 04:25 Estimated GFR > 60 ml/min 09/27/17 04:25 BUN/Creatinine Ratio 18 % 09/27/17 04:25 Glucose 99 mg/dL (65-100) 09/27/17 04:25 POC Glucose 114 (70-105) H 09/27/17 16:29 Hemoglobin A1c 10.4 % (4-6) H 09/25/17 08:48 Lactic Acid 0.90 mmol/L (0.7-2.0) 09/25/17 06:23 Calcium 8.4 mg/dL (8.4-10.2) 09/27/17 04:25 Magnesium 1.90 mg/dL (1.7-2.3) 09/24/17 19:35 Total Bilirubin 0.40 mg/dL (0.1-1.2) 09/26/17 04:09 AST 11 units/L (5-40) 09/26/17 04:09 ALT 11 units/L (7-56) 09/26/17 04:09 Alkaline Phosphatase 56 units/L (35-129) 09/26/17 04:09 Troponin T < 0.010 ng/mL (0.00-0.029) 09/26/17 14:37 NT-Pro-B Natriuret Pep 293.9 pg/mL (0-900) 09/24/17 19:35 Total Protein 6.8 g/dL (6.3-8.2) 09/26/17 04:09 Albumin 3.8 g/dL (3.9-5) L 09/26/17 04:09 Albumin/Globulin Ratio 1.3 % 09/26/17 04:09 TSH 1.770 mlU/mL (0.270-4.200) 09/24/17 19:35 HCG, Qual Negative (Negative) 09/24/17 19:35 Urine Color Yellow (Yellow) 09/24/17 21:25 Urine Turbidity Clear (Clear) 09/24/17 21:25 Urine pH 6.0 (5.0-7.0) 09/24/17 21:25 Ur Specific [place] 1.037 (1.003-1.030) H 09/24/17 21:25 Urine Protein 100 mg/dl mg/dL (Negative) 09/24/17 21:25 Urine Glucose (UA) >=500 mg/dL (Negative) 09/24/17 21:25 Urine Ketones 20 mg/dL (Negative) 09/24/17 21:25 Urine Blood Neg (Negative) 09/24/17 21:25 Urine Nitrite Neg (Negative) 09/24/17 21:25 Urine Bilirubin Neg (Negative) 09/24/17 21:25 Urine Urobilinogen < 2.0 mg/dL (<2.0) 09/24/17 21:25 Ur Leukocyte Esterase Neg (Negative) 09/24/17 21:25 Urine WBC (Auto) 1.0 /HPF (0.0-6.0) 09/24/17 21:25 Urine RBC (Auto) 3.0 /HPF (0.0-6.0) 09/24/17 21:25 U Epithel Cells (Auto) 3.0 /HPF (0-13.0) 09/24/17 21:25 Salicylates < 0.3 mg/dL (2.8-20.0) L 09/24/17 19:35 Urine Opiates Screen Presumptive negative 09/24/17 21:25 Urine Methadone Screen Presumptive negative 09/24/17 21:25 Acetaminophen < 15.0 ug/mL (10.0-30.0) 09/24/17 19:35 Ur Barbiturates Screen Presumptive negative 09/24/17 21:25 Ur Phencyclidine Scrn Presumptive negative 09/24/17 21:25 Ur Amphetamines Screen Presumptive negative 09/24/17 21:25 U Benzodiazepines Scrn Presumptive negative 09/24/17 21:25 Urine Cocaine Screen Presumptive negative 09/24/17 21:25 U Marijuana (THC) Screen Presumptive negative 09/24/17 21:25 Drugs of Abuse Note Disclamer 09/24/17 21:25 Plasma/Serum Alcohol < 0.01 gm% (0-0.07) 09/24/17 19:35
[2017-09-27] MEDS: PRAVACHOL PO SCH (21:52)
[2017-09-27] MEDS: LEVEMIR SUB-Q SCH (21:56)
[2017-09-28] MEDS: FLAGYL PO SCH ×3 (06:04→22:00)
[2017-09-28 08:21] LABS: CDIFF A/B Negative (Negative); CDIFF Internal QC Valid
[2017-09-28] MEDS: NOVOLOG SUB-Q SCH ×3 (08:21→16:30)
[2017-09-28] MEDS: PEPCID PO SCH ×2 (09:49→22:00)
[2017-09-28] MEDS: LEVAQUIN PO SCH (09:49)
[2017-09-28] MEDS: ATIVAN PO SCH ×2 (09:49→22:00)
[2017-09-28] MEDS: GLUCOTROL PO SCH ×2 (09:49→17:00)
[2017-09-28] MEDS: COGENTIN PO SCH ×2 (09:50→21:59)
[2017-09-28] MEDS: LOVENOX SUB-Q SCH (09:50)
[2017-09-28] MEDS: TRILAFON PO SCH ×2 (09:51→22:00)
[2017-09-28] MEDS ORDERED: IMODIUM PO PRN (09:55)
--- NOTE | 2017-09-28 10:08 | Progress Note ---
Assessment and Plan Assessment and plan: 52-year-old -[place] female with history of hypertension, hyperlipidemia and type 2 diabetes comes in for acute abdominal pain of 3 days' duration. Pain is periumbilical and diffuse. Pain is sharp and intermittent in nature. Pain is 10 over 10 associated with nausea. no vomiting or diarrhea.No fever no chills.No exacerbating or relieving factors Peritoneal irritation- Resolved Diarrhea- CDIFF RULED OUT. Hypertension urgency- Resolving Atypical chest pain- Likely secondary to GERD Diabetes Mellitus with Hyperglycemia Lactic acidosis- Resolved. SIRS- doubt spesis. Hyperlipidemia Pleural nodule Bipolar Disorder Hypertension. Plan: Supportive care Pain control D/C Isolation start on Imodium Gall bladder evaluation D.W surgery Resume home med CT scan obtained and negative for PE Restart insulin and monitor blood sugar pain control GI cocktail dvt/gi Prophy Discharge planning for tomorrow, discussed with patient, nurse and patients sister at patients request History Interval history: Patient seen and examined reports reflux type pain, Nursing staff reports diarrhea Still persist, C.DIFF Negative. Hospitalist Physical - Physical exam Narrative exam: General appearance: Present: no acute distress, well-nourished, obese - EENT Eyes: Present: PERRL, EOM intact ENT: hearing intact - Neck Neck: Present: supple, normal ROM - Respiratory Respiratory effort: normal Respiratory: bilateral: CTA - Cardiovascular Rhythm: regular Heart Sounds: Present: S1 & S2. Absent: systolic murmur, diastolic murmur - Extremities Extremities: no ischemia, pulses intact, pulses symmetrical, No edema, normal temperature, normal color, Full ROM Peripheral Pulses: within normal limits - Abdominal General gastrointestinal: soft, tender, non-distended Localized gastrointestinal: tender: RUQ - Integumentary Integumentary: Present: clear, warm, dry - Psychiatric Psychiatric: appropriate mood/affect, cooperative - Neurologic Neurologic: CNII-XII intact, moves all extremities - Constitutional Vitals: Temp Pulse Resp BP Pulse Ox 97.8 F 73 20 154/90 97 09/28/17 07:17 09/28/17 07:17 09/28/17 07:17 09/28/17 07:17 09/28/17 07:17 General appearance: Present: no acute distress, well-nourished, obese Results - Labs CBC & Chem 7: 09/27/17 05:19 09/27/17 04:25 Labs: Laboratory Last Values WBC 6.8 K/mm3 (4.5-11.0) 09/27/17 05:19 RBC 4.33 M/mm3 (3.65-5.03) 09/27/17 05:19 Hgb 13.6 gm/dl (10.1-14.3) 09/27/17 05:19 Hct 40.6 % (30.3-42.9) 09/27/17 05:19 MCV 94 fl (79-97) 09/27/17 05:19 MCH 32 pg (28-32) 09/27/17 05:19 MCHC 34 % (30-34) 09/27/17 05:19 RDW 14.8 % (13.2-15.2) 09/27/17 05:19 Plt Count 180 K/mm3 (140-440) 09/27/17 05:19 Lymph % (Auto) 29.3 % (13.4-35.0) 09/26/17 04:09 [place] % (Auto) 10.8 % (0.0-7.3) H 09/26/17 04:09 Eos % (Auto) 0.2 % (0.0-4.3) 09/26/17 04:09 Baso % (Auto) 0.2 % (0.0-1.8) 09/26/17 04:09 Lymph # 3.0 K/mm3 (1.2-5.4) 09/26/17 04:09 [place] # 1.1 K/mm3 (0.0-0.8) H 09/26/17 04:09 Eos # 0.0 K/mm3 (0.0-0.4) 09/26/17 04:09 Baso # 0.0 K/mm3 (0.0-0.1) 09/26/17 04:09 Seg Neutrophils % 59.5 % (40.0-70.0) 09/26/17 04:09 Seg Neutrophils # 6.0 K/mm3 (1.8-7.7) 09/26/17 04:09 D-Dimer 481.41 ng/mlDDU (0-234) H 09/26/17 14:37 VBG pH 7.506 (7.320-7.420) H 09/24/17 19:35 Sodium 135 mmol/L (137-145) L 09/27/17 04:25 Potassium 4.0 mmol/L (3.6-5.0) D 09/27/17 04:25 Chloride 100.8 mmol/L (98-107) 09/27/17 04:25 Carbon Dioxide 19 mmol/L (22-30) L D 09/27/17 04:25 Anion Gap 19 mmol/L 09/27/17 04:25 BUN 9 mg/dL (7-17) 09/27/17 04:25 Creatinine 0.5 mg/dL (0.7-1.2) L 09/27/17 04:25 Estimated GFR > 60 ml/min 09/27/17 04:25 BUN/Creatinine Ratio 18 % 09/27/17 04:25 Glucose 99 mg/dL (65-100) 09/27/17 04:25 POC Glucose 99 (70-105) 09/28/17 07:21 Hemoglobin A1c 10.4 % (4-6) H 09/25/17 08:48 Lactic Acid 0.90 mmol/L (0.7-2.0) 09/25/17 06:23 Calcium 8.4 mg/dL (8.4-10.2) 09/27/17 04:25 Magnesium 1.90 mg/dL (1.7-2.3) 09/24/17 19:35 Total Bilirubin 0.40 mg/dL (0.1-1.2) 09/26/17 04:09 AST 11 units/L (5-40) 09/26/17 04:09 ALT 11 units/L (7-56) 09/26/17 04:09 Alkaline Phosphatase 56 units/L (35-129) 09/26/17 04:09 Troponin T < 0.010 ng/mL (0.00-0.029) 09/26/17 14:37 NT-Pro-B Natriuret Pep 293.9 pg/mL (0-900) 09/24/17 19:35 Total Protein 6.8 g/dL (6.3-8.2) 09/26/17 04:09 Albumin 3.8 g/dL (3.9-5) L 09/26/17 04:09 Albumin/Globulin Ratio 1.3 % 09/26/17 04:09 TSH 1.770 mlU/mL (0.270-4.200) 09/24/17 19:35 HCG, Qual Negative (Negative) 09/24/17 19:35 Urine Color Yellow (Yellow) 09/24/17 21: Urine Turbidity Clear (Clear) 09/24/17 21:25 Urine pH 6.0 (5.0-7.0) 09/24/17 21:25 Ur Specific [place] 1.037 (1.003-1.030) H 09/24/17 21:25 Urine Protein 100 mg/dl mg/dL (Negative) 09/24/17 21:25 Urine Glucose (UA) >=500 mg/dL (Negative) 09/24/17 21: Urine Ketones 20 mg/dL (Negative) 09/24/17 21:25 Urine Blood Neg (Negative) 09/24/17 21:25 Urine Nitrite Neg (Negative) 09/24/17 21:25 Urine Bilirubin Neg (Negative) 09/24/17 21: Urine Urobilinogen < 2.0 mg/dL (<2.0) 09/24/17 21:25 Ur Leukocyte Esterase Neg (Negative) 09/24/17 21:25 Urine WBC (Auto) 1.0 /HPF (0.0-6.0) 09/24/17 21:25 Urine RBC (Auto) 3.0 /HPF (0.0-6.0) 09/24/17 21:25 U Epithel Cells (Auto) 3.0 /HPF (0-13.0) 09/24/17 21:25 Salicylates < 0.3 mg/dL (2.8-20.0) L 09/24/17 19:35 Urine Opiates Screen Presumptive negative 09/24/17 21:25 Urine Methadone Screen Presumptive negative 09/24/17 21:25 Acetaminophen < 15.0 ug/mL (10.0-30.0) 09/24/17 19:35 Ur Barbiturates Screen Presumptive negative 09/24/17 21:25 Ur Phencyclidine Scrn Presumptive negative 09/24/17 21:25 Ur Amphetamines Screen Presumptive negative 09/24/17 21:25 U Benzodiazepines Scrn Presumptive negative 09/24/17 21:25 Urine Cocaine Screen Presumptive negative 09/24/17 21:25 U Marijuana (THC) Screen Presumptive negative 09/24/17 21:25 Drugs of Abuse Note Disclamer 09/24/17 21:25 Plasma/Serum Alcohol < 0.01 gm% (0-0.07) 09/24/17 19:35 C. difficile Toxin A&B Negative (Negative) 09/28/17 Unknown
--- NOTE | 2017-09-28 15:03 | Progress Note ---
Subjective Patient Reports: Positive: feels better, pain is less, flatus, bowel movement Narrative: feels much better pain is much less , still however in mid upper epigastrum , , m loose stool , may need upper endoscopy , will see PRN , Objective Vital Signs - 12hr 09/28/17 07:17 Temperature 97.8 F Pulse Rate 73 Respiratory 20 Rate Blood Pressure 154/90 O2 Sat by Pulse 97 Oximetry - Labs 09/27/17 05:19 09/27/17 04:25
[2017-09-28] MEDS: PRAVACHOL PO SCH (22:00)
[2017-09-28] MEDS: LEVEMIR SUB-Q SCH (22:02)
[2017-09-29] MEDS: NOVOLOG SUB-Q SCH ×3 (00:01→12:05)
[2017-09-29] MEDS: FLAGYL PO SCH ×2 (06:17→13:14)
--- NOTE | 2017-09-29 11:01 | Discharge Summary ---
Providers - Providers Date of Admission: 09/25/17 08:16 Attending physician: THIAGO BARAHONA MD 09/25/17 08:15 Consult to Physician [CONS] Routine Consulting Provider: FANG ROPER Reason For Exam: Abd pain Place consult to:: dr. roper Notified:: yes Primary care physician: FELICIANO CEDILLO Hospitalization Reason for admission: ABDOMINAL PAIN Condition: Stable Hospital course: 52-year-old -[place] female with history of hypertension, hyperlipidemia and type 2 diabetes comes in for acute abdominal pain of 3 days' duration. Pain is periumbilical and diffuse. Pain is sharp and intermittent in nature. Pain is 10 over 10 associated with nausea. no vomiting or diarrhea.No fever no chills.No exacerbating or relieving factors Imaging studies in the hospital was negative patient subsequently developed diarrhea likely induced by medication. C. difficile was ruled out. Patient was started on Imodium with resolution. Surgery did see the patient and no surgical intervention was recommended at this time. A follow-up with GI as recommended for nausea and intermittent constipation with diarrhea to rule out possible IBD. Condition at this time is stable patient is stable for discharge. Follow-up appointments as described and discussed in detail with the patient's family. Peritoneal irritation-secondary to gastroenteritis Diarrhea- CDIFF RULED OUT. Hypertension urgency- Resolving Atypical chest pain- Likely secondary to GERD Diabetes Mellitus with Hyperglycemia Lactic acidosis- Resolved. SIRS-secondary to gastroenteritis Hyperlipidemia Pleural nodule Bipolar Disorder Hypertension. Disposition: DC-01 TO HOME OR SELFCARE Time spent for discharge: 35 mins Core Measure Documentation - Palliative Care Palliative Care/ Comfort Measures: Not Applicable - Core Measures Any of the following diagnoses?: none - VTE Discharge Requirements Deep Vein Thrombosis/Pulmonary Embolism Present on Admission: No Exam - Physical Exam Narrative exam: VITAL SIGNS: Reviewed. GENERAL: The patient appeared well nourished and normally developed. Morbidly obese. Vital signs as documented. HEAD: No signs of head trauma. EYES: Pupils are equal. Extraocular motions intact. EARS: Hearing grossly intact. MOUTH: Oropharynx is normal. NECK: No adenopathy, no JVD. CHEST: Chest with clear breath sounds bilaterally. No wheezes, rales, or rhonchi. CARDIAC: Regular rate and rhythm. S1 and S2, without murmurs, gallops, or rubs. VASCULAR: No Edema. Peripheral pulses normal and equal in all extremities. ABDOMEN: Soft, without detectable tenderness. No sign of distention. No rebound or guarding, and no masses palpated. Bowel Sounds normal. MUSCULOSKELETAL: Good range of motion of all major joints. Extremities without clubbing, cyanosis or edema. NEUROLOGIC EXAM: Alert and oriented x 3. No focal sensory or strength deficits. Speech normal. Follows commands. PSYCHIATRIC: Mood normal. SKIN: No rash or lesions. - Constitutional Vitals: Temp Pulse Resp BP Pulse Ox 99.6 F 81 20 137/62 98 09/29/17 07:07 09/29/17 07:07 09/29/17 07:07 09/29/17 07:07 09/29/17 07:07 Plan Activity: advance as tolerated, fall precautions Diet: low cholesterol, diabetic Special Instructions: record daily BP diary, record blood sugar diary Follow up with: KENYON OLVERA MD [Staff Physician] - 3-5 Days CALISTA SIMPSON MD [Staff Physician] - 7 Days Prescriptions: Famotidine [Pepcid] 20 mg PO DAILY #30 tablet Loperamide [Imodium] 2 mg PO Q2H PRN #30 capsule PRN Reason: Diarrhea LORazepam [Ativan] 0.5 mg PO BID #14 tablet
[2017-09-29] MEDS: COGENTIN PO SCH (11:02)
[2017-09-29] MEDS: ATIVAN PO SCH (11:03)
[2017-09-29] MEDS: TRILAFON PO SCH (11:03)
[2017-09-29] MEDS: LOVENOX SUB-Q SCH (11:03)
[2017-09-29] MEDS: PEPCID PO SCH (11:03)
[2017-09-29] MEDS: GLUCOTROL PO SCH (11:04)
[2017-09-29] MEDS: LEVAQUIN PO SCH (11:04)
[2017-09-29 11:55] VITALS: BP 151/92
--- NOTE | 2017-10-06 09:52 | Query-Infection ---
Dear Lacey Date:___10/06/17 Watch Crystal Grinder/CDS:____Kristianclarisse / Jerel Phone#:__[phone] Exercise your independent professional judgment when responding to this query. Questions asked do not imply a particular answer is desired or expected. We greatly appreciate your clarification on this issue. Clinical Documentation States: 52 year old female was admitted on 09/25/17 The discharge summary (Dr. Rahman) states " 52-year-old -L[place] female with history of hypertension, hyperlipidemia and type 2 diabetes comes in for acute abdominal pain of 3 days' duration. SIRS-secondary to gastroenteritis Peritoneal irritation-secondary to gastroenteritis " WBC: 18.7 Pulse rate: 96 Clinical findings show: (please check applicable parameters) Infection, known /suspected, with some of the following indicators; Specify the infection: 3 General parameters [ ] Fever (core temp >38.30C or 100.40F) [ ] Hypothermia (core temp <36C) [x ] Heart rate >90 bpm [ ] Tachypnea: >20 bpm or pCO2 < 32 mmHg [ ] Altered mental status [ ] Significant edema / +ve fluid balance (>20 ml/kg 24 h) [ ] Hyperglycemia (Bl. glucose >110 mg/dl) w/o diabetes Inflammatory parameters [x ] Leukocytosis (white blood cell count >12,000/l) [ ] Leukopenia (white blood cell count <4,000/l) [ ] Bandemia (immature WBC > 10%) [ ] Leucocyte Left Shift [ ] Plasma procalcitonin>2 SD above the normal value Hemodynamic and tissue perfusion parameters [ ] Arterial hypotension(SBP <90 mmHg, MAP <70 mmHg,or a SBP drop >40 mmHg in adults) [ ] Hyperlactatemia (>3 mmol/l) [ ] Anion Gap (> 11mEG/l) [ ] Decreased capillary refill or mottling Organ dysfunction parameters [ ] Arterial hypoxemia (PaO2/FIO2 <300) [ ] Creatinine increase =0.5 mg/dl [ ] Acute oliguria (urine output <0.5 ml | kg |h or 45 mM/l for at least 2 hrs) [ ] Coagulation abnormalities (INR >1.5 or activated partial thromboplastin time >60 s) [ ] Ileus (absent darwin wel sounds) [ ] Thrombocytopenia (platelet count <100,000/l) [ ] Hyperbilirubinemia (plasma total bilirubin >4 mg/dl) According to the clinical indications above, can Bacteremia be further specified? If so, please indicate below and in your Progress Notes and/ or Discharge Summary. Indicate if the condition was present on admission. PHYSICIAN RESPONSE: [ ] Sepsis [ ] Severe Sepsis [ ] Septic Shock [ ] Septicemia [ ] Sepsis now resolved [ x] SIRS due to non-infectious cause with organ dysfunction [ ] SIRS due to non-infectious cause without organ dysfunction [ ] Other: [ ] Comment/Explanation: Present on Admission: [y ] Yes (Y) [ ] Clinically undeterminable (W) [ ] No (N) [ ] Ruled Out Please also document response in your Progress Notes and/or Discharge Summary and indicate if the condition was present on admission Notes: SIRS/ SIRS WITH ORGAN DYSFUNCTION Systemic inflammatory response syndrome (SIRS) generally refers to the systemic response to trauma/gutierrez or other insult such as Acute Myocardial Infarction, Acute Pancreatitis, and Major Surgery with symptoms including fever, tachycardia , tachypnea, and leukocytosis (1). BACTEREMIA Presence of viable bacteria in the circulating blood (2). This term is reserved for patients that do not manifest above SIRS response. SEPTICEMIA Generally refers to a systemic disease associated with the presence of pathological microorganisms or toxins in the blood, which can include bacteria, viruses, fungi or other organisms (1). SEPSIS Generally refers to SIRS due infection (1). SEVERE SEPSIS Generally refers to sepsis associated with acute organ dysfunction (1). SEPTIC SHOCK Generally refers to circulatory failure associated with severe sepsis (2), and defined as hypotension or hypoperfusion despite adequate fluid resuscitation (1 hour) (3). REFERENCES: 1. [employer]/Society of Critical Care Medicine Consensus Conference. Definitions for sepsis and organ failure and guidelines for the use of innovative therapies in sepsis. Critical Care Med 1992;20:864 - 74. 2. Delvin de la rosa MM, Rickey MP, Mesfin KUMAR, Estrada E, Brian D, Amari D, Pedro J, Sharron SM , Ted JL, Ag G; International Sepsis Definitions Conference. 2001 SCCM/ESICM/ACCP/ATS/SIS International Sepsis Definitions Conference. Intensive Care Med. 2002;29(4):530-8. Epub 2002Dec 29. Review. PubMed PMID:[id number] 3. ICD-9-CM Official Guidelines for Coding and Reporting 4. Medscape Drugs, Diseases and Procedures references 5. [employer] Textbook of Internal Medicine. 18th Edition MTDD
== END 2017-09-29 14:11 | disposition home or self-care (01) | DRG 391 ==
LOC: ED 19:15 → 3B-SURG 09-25 08:16
PROVIDERS: ADMIT Internal Medicine; ATTEND Internal Medicine
DX: K52.9 Noninfective gastroenteritis and colitis, unspecified (principal); K65.9 Peritonitis, unspecified; R65.11 Systemic inflammatory response syndrome (SIRS) of non-infectious origin with acute organ dysfunction; E87.2 Acidosis; K21.9 Gastro-esophageal reflux disease without esophagitis; E78.5 Hyperlipidemia, unspecified; I10 Essential (primary) hypertension; F31.9 Bipolar disorder, unspecified; I16.0 Hypertensive urgency; E11.65 Type 2 diabetes mellitus with hyperglycemia; Z79.84 Long term (current) use of oral hypoglycemic drugs; Z79.899 Other long term (current) drug therapy; Z82.49 Family history of ischemic heart disease and other diseases of the circulatory system
CPT/HCPCS: 36415; 70450; 71020; 71275; 74177; 76705; 78226; 80048; 80053; 80307; 80320; 81001; 82140; 82805; 82962; 83036; 83735; 83880; 84443; 84484; 84703; 85025; 85027; 85379; 87045; 87324; 93005; 93010; 96361; 96374; 96375; 99406; A9270-GY; A9537; G0480; J0360; J1650; J1815; J1818; J2270; J2405; J2543; J3370; J7030; Q0175; Q9967

== ENCOUNTER 2018-12-06 19:42 | Emergency (ER) | payer MEDICARE ==
--- NOTE | 2018-12-06 20:41 | Emergency Department Report ---
Blank Doc - Documentation Documentation: This is a 53 y.o. female that presents with BLE pain from excessive walking. Patient states she is homeless and her legs are aching. Denies recent injury. Extremities: No swelling, erythema, or warmth to BLE. Fast track for further evaluation.
[2018-12-06 20:45] VITALS: BP 152/65
--- NOTE | 2018-12-07 01:18 | Emergency Department Report ---
ED General Adult HPI - General Chief complaint: Extremity Injury, Lower Stated complaint: PAIN IN BOTH LEGS Time Seen by Provider: 12/06/18 20:37 Source: patient Mode of arrival: Ambulatory Limitations: No Limitations - History of Present Illness Initial comments: Patient is a 53-year-old female who presents for bilateral lower extremity pain is acute on chronic problem patient states her last 5 years just been no new fall injury or trauma patient states pain woman started to get cold patient does note a history of arthralgia there is no calf tenderness no shortness of breath no swelling no numbness no edema no paroxysmal nocturnal dyspnea pain is generally relieved by moving and hot shower prior to returns in the evening with aching preventing complete nights sleep. Patient states this episode got especially worse excess walking as she is now homeless Onset/Timin -: days(s) Location: lower extremity Radiation: non-radiation Severity scale (0 -10): 4 Quality: aching Consistency: intermittent Improves with: rest Worsens with: movement, other (prolonged standing walking ) Associated Symptoms: denies other symptoms Treatments Prior to Arrival: none, NSAID - Related Data Home Medications Medication Instructions Recorded Confirmed Last Taken Benztropine [Cogentin] 1 mg PO BID 09/25/17 09/25/17 Unknown Perphenazine 8 mg PO QAM 09/25/17 09/25/17 Unknown Perphenazine 16 mg PO QHS 09/25/17 09/25/17 Unknown Quetiapine Fumarate [Seroquel] 400 mg PO BID 09/25/17 09/25/17 Unknown Simvastatin 20 mg PO QHS 09/25/17 09/25/17 Unknown glipiZIDE [Glipizide] 5 mg PO BID 09/25/17 09/25/17 Unknown metFORMIN [Glucophage] 1,000 mg PO BID 09/25/17 09/25/17 Unknown Previous Rx's Medication Instructions Recorded Last Taken Type Famotidine [Pepcid] 20 mg PO DAILY #30 tablet 09/29/17 Unknown Rx LORazepam [Ativan] 0.5 mg PO BID #14 tablet 09/29/17 Unknown Rx Loperamide [Imodium] 2 mg PO Q2H PRN #30 capsule 09/29/17 Unknown Rx Menthol/Camphor [[place] 1 applicatio TP TIDHS PRN #1 tube 12/07/18 Unknown Rx Ointment] Naproxen [Naprosyn] 500 mg PO BID PRN #60 tablet 12/07/18 Unknown Rx Allergies Allergy/AdvReac Type Severity Reaction Status Date / Time Penicillins Allergy Unknown Verified 12/06/18 19:57 ED Review of Systems ROS: Stated complaint: PAIN IN BOTH LEGS Other details as noted in HPI Constitutional: denies: chills, fever Eyes: denies: eye pain, eye discharge, vision change ENT: denies: ear pain, throat pain Respiratory: denies: cough, shortness of breath, wheezing Cardiovascular: denies: chest pain, palpitations Endocrine: no symptoms reported Gastrointestinal: denies: abdominal pain, nausea, diarrhea Genitourinary: denies: urgency, dysuria, discharge Musculoskeletal: arthralgia, myalgia Skin: denies: rash, lesions Neurological: denies: headache, weakness, paresthesias Psychiatric: denies: anxiety, depression Hematological/Lymphatic: denies: easy bleeding, easy bruising ED Past Medical Hx - Past Medical History Previous Medical History?: Yes Hx Hypertension: Yes Hx Diabetes: Yes Hx Psychiatric Treatment: Yes Additional medical history: Heart problem - Social History Smoking Status: Current Some Day Smoker Substance Use Type: None - Medications Home Medications: Home Medications Medication Instructions Recorded Confirmed Last Taken Type Benztropine [Cogentin] 1 mg PO BID 09/25/17 09/25/17 Unknown History Perphenazine 8 mg PO QAM 09/25/17 09/25/17 Unknown History Perphenazine 16 mg PO QHS 09/25/17 09/25/17 Unknown History Quetiapine Fumarate [Seroquel] 400 mg PO BID 09/25/17 09/25/17 Unknown History Simvastatin 20 mg PO QHS 09/25/17 09/25/17 Unknown History glipiZIDE [Glipizide] 5 mg PO BID 09/25/17 09/25/17 Unknown History metFORMIN [Glucophage] 1,000 mg PO BID 09/25/17 09/25/17 Unknown History Famotidine [Pepcid] 20 mg PO DAILY #30 tablet 09/29/17 Unknown Rx LORazepam [Ativan] 0.5 mg PO BID #14 tablet 09/29/17 Unknown Rx Loperamide [Imodium] 2 mg PO Q2H PRN #30 capsule 09/29/17 Unknown Rx Menthol/Camphor [[place] 1 applicatio TP TIDHS PRN #1 tube 12/07/18 Unknown Rx Ointment] Naproxen [Naprosyn] 500 mg PO BID PRN #60 tablet 12/07/18 Unknown Rx ED Physical Exam - General Limitations: No Limitations General appearance: alert, in no apparent distress - Head Head exam: Present: atraumatic, normocephalic - Eye Eye exam: Present: normal appearance - ENT ENT exam: Present: mucous membranes moist - Neck Neck exam: Present: normal inspection - Respiratory Respiratory exam: Present: normal lung sounds bilaterally. Absent: respiratory distress - Cardiovascular Cardiovascular Exam: Present: regular rate, normal rhythm. Absent: systolic murmur, diastolic murmur, rubs, gallop - GI/Abdominal GI/Abdominal exam: Present: soft, normal bowel sounds - Rectal Rectal exam: Present: deferred - External exam: Present: other (exam deferred ) - Extremities Exam Extremities exam: Present: normal inspection, full ROM, normal capillary refill. Absent: tenderness, pedal edema, joint swelling, calf tenderness - Back Exam Back exam: Present: normal inspection, full ROM. Absent: tenderness, CVA tenderness (R), CVA tenderness (L), muscle spasm, rash noted - Neurological Exam Neurological exam: Present: alert, oriented X3, CN II-XII intact, normal gait, reflexes normal. Absent: motor sensory deficit - Psychiatric Psychiatric exam: Present: normal affect, normal mood - Skin Skin exam: Present: warm, dry, intact, normal color. Absent: rash ED Course Vital Signs 12/06/18 20:38 Pulse Rate 87 Respiratory 18 Rate Blood Pressure 152/65 O2 Sat by Pulse 97 Oximetry ED Medical Decision Making - Medical Decision Making this is arthralgia, plan, naproxen, muscle relaxant , analgesic balm , continue daily hygene and follow up with pcp as needed pt verbalized agreement and understanding of discharge plan. Critical care attestation.: If time is entered above; I have spent that time in minutes in the direct care of this critically ill patient, excluding procedure time. ED Disposition Clinical Impression: Bilateral leg pain Arthralgia Qualifiers: Joint pain location: hip Laterality: bilateral Qualified Code(s): M25.551 - Pain in right hip; M25.552 - Pain in left hip Disposition: -01 TO HOME OR SELFCARE Is pt being admited?: No Does the pt Need Aspirin: No Condition: Stable Instructions: Arthralgia (ED) Prescriptions: Menthol/Camphor [[place] Ointment] 1 applicatio TP TIDHS PRN #1 tube PRN Reason: pain Naproxen [Naprosyn] 500 mg PO BID PRN #60 tablet PRN Reason: pain Referrals: [facility] [Outside] - 3-5 Days Forms: Work/School Release Form(ED) Time of Disposition: 01:25
== END 2018-12-07 01:30 | disposition home or self-care (01) ==
LOC: ED 19:42
DX: M79.661 Pain in right lower leg (principal); M79.662 Pain in left lower leg; M25.551 Pain in right hip; M25.552 Pain in left hip; I10 Essential (primary) hypertension; E11.9 Type 2 diabetes mellitus without complications; F17.200 Nicotine dependence, unspecified, uncomplicated; Z88.0 Allergy status to penicillin; X50.1XXA Overexertion from prolonged static or awkward postures, initial encounter; Y93.89 Activity, other specified; Y92.89 Other specified places as the place of occurrence of the external cause; Y99.8 Other external cause status
CPT/HCPCS: 99282

== ENCOUNTER 2018-12-22 16:08 | Inpatient (IN) | payer MEDICARE ==
[2018-12-22] MEDS ORDERED: IMODIUM PO PRN (17:02)
[2018-12-22] MEDS ORDERED: GEODON IM PRN (17:06)
--- NOTE | 2018-12-22 18:33 | History and Physical Report ---
History of Present Illness Date of admission: 12/22/18 17:53 Chief complaint: Confused History of present illness: 53 YO Female with MO, Bioplar Disorder, HTN, DM, HLD, Nicotine Dependence presents to ED for evaluation. Pt was found to be confused, and walking near [facility]. Pt appeared confused and not "acting normally'. EMS was notified and upon arrival found to patient to have altered mentation. Pt transported to [facility]. 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 Pt unable to provide history. Mental health consutled in ED. Pt admitted to Geriatric Psychiatry unit. Past History Past Medical History: diabetes, hypertension, hyperlipidemia Past Surgical History: No surgical history, Other (reviewed) Social history: single, smoking Family history: hypertension Medications and Allergies Allergies Allergy/AdvReac Type Severity Reaction Status Date / Time Penicillins Allergy Unknown Verified 12/06/18 19:57 Home Medications Medication Instructions Recorded Confirmed Last Taken Type Benztropine [Cogentin] 1 mg PO BID 09/25/17 09/25/17 Unknown History Perphenazine 8 mg PO QAM 09/25/17 09/25/17 Unknown History Perphenazine 16 mg PO QHS 09/25/17 09/25/17 Unknown History Quetiapine Fumarate [Seroquel] 400 mg PO BID 09/25/17 09/25/17 Unknown History Simvastatin 20 mg PO QHS 09/25/17 09/25/17 Unknown History glipiZIDE [Glipizide] 5 mg PO BID 09/25/17 09/25/17 Unknown History metFORMIN [Glucophage] 1,000 mg PO BID 09/25/17 09/25/17 Unknown History Famotidine [Pepcid] 20 mg PO DAILY #30 tablet 09/29/17 Unknown Rx LORazepam [Ativan] 0.5 mg PO BID #14 tablet 09/29/17 Unknown Rx Loperamide [Imodium] 2 mg PO Q2H PRN #30 capsule 09/29/17 Unknown Rx Menthol/Camphor [[place] 1 applicatio TP TIDHS PRN #1 tube 12/07/18 Unknown Rx Ointment] Naproxen [Naprosyn] 500 mg PO BID PRN #60 tablet 12/07/18 Unknown Rx Active Meds: Active Medications Famotidine (Pepcid) 20 mg PO DAILY [facility]LINE Glipizide (Glucotrol) 5 mg PO BID [facility] Loperamide HCl (Imodium) 2 mg PO Q2H PRN PRN Reason: Diarrhea Metformin HCl (Glucophage) 1,000 mg PO BID MERLINE Risperidone (Risperdal) 1 mg PO BID MERLINE Ziprasidone (Geodon) 20 mg IM Q8H PRN PRN Reason: Agitation Review of Systems ROS unobtainable: due to mental status Exam - Constitutional General appearance: Present: obese - EENT Eyes: Present: PERRL ENT: hearing intact, clear oral mucosa - Neck Neck: Present: supple, normal ROM - Respiratory Respiratory effort: normal Respiratory: bilateral: CTA - Cardiovascular Heart Sounds: Present: S1 & S2. Absent: rub, click - Extremities Extremities: pulses symmetrical, No edema Peripheral Pulses: within normal limits - Abdominal General gastrointestinal: Present: soft, non-tender, non-distended, normal bowel sounds Female genitourinary: Present: normal - Integumentary Integumentary: Present: clear, warm, dry - Musculoskeletal Musculoskeletal: gait normal, strength equal bilaterally - Psychiatric Psychiatric: no appropriate mood/affect, no intact judgment & insight, no memory intact, agitated - Neurologic Neurologic: CNII-XII intact, moves all extremities Assessment and Plan - Patient Problems (1) Hyperlipidemia Current Visit: No Status: Chronic Qualifiers: Hyperlipidemia type: mixed hyperlipidemia Qualified Code(s): E78.2 - Mixed hyperlipidemia Plan to address problem: Statin therapy, low cholesterol diet, (2) Hypertension Current Visit: No Status: Chronic Qualifiers: Hypertension type: essential hypertension Qualified Code(s): I10 - Essential (primary) hypertension Plan to address problem: Monitor BP q shift, continue prehospital antihypertensive therapy. (3) T2DM (type 2 diabetes mellitus) Current Visit: No Status: Chronic Qualifiers: Diabetes mellitus complication status: without complication Plan to address problem: ADA diet, continue current oral antihyperglycemic therapy, (4) DVT prophylaxis Current Visit: No Status: Acute Plan to address problem: SCD to BLE while in bed, Ambulate TID and PRN.
[2018-12-22] MEDS ORDERED: RisperDAL PO SCH (22:00)
[2018-12-22] MEDS: GLUCOPHAGE PO SCH (22:51)
[2018-12-22] MEDS: GLUCOTROL PO SCH (22:51)
[2018-12-23] MEDS: GLUCOPHAGE PO SCH ×2 (08:59→18:07)
[2018-12-23] MEDS: GLUCOTROL PO SCH ×2 (09:00→18:13)
--- NOTE | 2018-12-23 09:59 | History and Physical Report ---
GP History & Physical - History of Present Illness Date of admission: 12/22/18 Date of Examination: 12/23/18 Reason for Admission: Psychopathology interference, Unable to care for self Chief Complaint: I am having electric shocks in my brain History of Present Illness: The patient is a 53 YO Female with history of Paranoid Schizophrenia, HTN, DM, HLD and Nicotine Dependence. She was admitted last night to the [facility] via the ED after she was was found to be confused, and walking near [facility]. Patient seen by me this morning. She reports being diagnosed with Schizophrenia, states that electricity is going through her brain. She is very paranoid, responding to internal stimuli, disorganized and obviously distressed by auditory, visual and tactile hallucinations. Patient denies suicidal or homicidal ideation. Patient denies abusing substances. Patient admits that she has not been compliant with her medications and out-patient follow-ups. Per records, patient was on Seroquel and Perphenazine which appeared to have been last filled in 2017. Legal Status: Involuntary Patient Problems: Current Active Problems Paranoid schizophrenia (Acute) Reaction to Hospitalization: Resistant Substance History - Substance History Drug Use: other (Patient denies ) Past psychiatric history - Past Medical History Past Medical History: GERD, hypertension, hyperlipidemia - past Psychiatric treatment and history Psych: Schizophrenia - Social History Social history: other (Unable to obtain as patient is irritable and very disorganized) Review of Systems ROS unobtainable: due to mental status Physical Examination - Constitutional General appearance: Present: well-nourished, obese, disheveled, malodorous - EENT ENT: hearing intact, poor dentition - Neck Neck: Present: normal ROM - Respiratory Respiratory effort: normal Mental Status Exam - Exam Orientation: time, place, person Affect: agitated Mood: congruent with affect Thought content: delusions, paranoia Thought Process: Disorganized Perceptions: visual, auditory, tactile, hallucinations Speech: normal rate and pattern Concentration: distractible, unable to pay attention Motor activity: agitated Level of consciousness: alert Memory: Intact Sleep Symptoms: None Interaction: hostile, irritable, guarded, uncooperative Assessment and Plan - Psychiatric problem (1) Paranoid schizophrenia Current Visit: Yes Status: Acute (2) Hyperlipidemia Current Visit: No Status: Chronic Qualifiers: Hyperlipidemia type: mixed hyperlipidemia Qualified Code(s): E78.2 - Mixed hyperlipidemia (3) Hypertension Current Visit: No Status: Chronic Qualifiers: Hypertension type: essential hypertension Qualified Code(s): I10 - Essential (primary) hypertension (4) T2DM (type 2 diabetes mellitus) Current Visit: No Status: Chronic Qualifiers: Diabetes mellitus complication status: without complication Physician Certification - Certification Statement Physician Certification Statement: This is an acknowledgement statement that ESTEPHANIE CAPELLAN is a 53 year old F who requires inpatient psychiatric admission for treatment which could reasonably be expected to improve the patient's condition for Schizophrenia Estimated period of time patient will need to remain in the hospital: 14 days Plan for post-hospital care: [facility]: Patient will be admitted for inpatient psychiatric evaluation, medication adjustment and close monitoring The patient's behavior, mood, sleep and appetite will be closely monitored. Patient will be enrolled in therapeutic sessions and encouraged to attend. Patient will be provided with a safe and structured environment. Patient's physical health needs will be addressed by the Hospitalist. Social Assessment will be completed and the Hub Associate will work with patient and family to ensure a suitable and safe disposition Medication adjustment will be made as clinically indicated The patient agreed on the treatment plan, understood the risk, benefit, alternative treatment, potential consequence of no treatment, and gave informed consent.
[2018-12-23] MEDS: PEPCID PO SCH (10:39)
[2018-12-23] MEDS ORDERED: GLUCOPHAGE PO ONE (11:00)
[2018-12-23] MEDS ORDERED: GLUCOTROL PO ONE (11:00)
[2018-12-24] MEDS: GLUCOPHAGE PO SCH ×2 (09:06→17:05)
[2018-12-24] MEDS: GLUCOTROL PO SCH ×2 (09:07→17:06)
[2018-12-24] MEDS: PEPCID PO SCH (09:53)
--- NOTE | 2018-12-24 14:50 | Progress Note ---
Subjective Date of service: 12/24/18 Principal diagnosis: Paranoid Schizophrenia Subjective Comment: Patient is extremely psychotic, disorganized, agitated, paranoid and restless. She is experiencing auditory, visual and tactile hallucinations. She is not sleeping well. She is accepting medications. Seroquel increased to 400mg bid Objective - Criteria for Continued Treatment Criteria for Continued Treatment: Improving Level of Functioning, Understanding Diagnosis and need for Medication, Improving Treatment / Medication Compliance, Stablizing Level of Functioning, Improving Emotional/Socia - Mental Status Mental Status: Oriented x 3 - Objective Observation Participation Level: Minimal Assessment and Plan - Patient Problems (1) Paranoid schizophrenia Current Visit: Yes Status: Acute Plan to address problem: Patient will be admitted for inpatient psychiatric evaluation, medication adjustment and close monitoring The patient's behavior, mood, sleep and appetite will be closely monitored. Patient will be enrolled in individual and group therapeutic sessions and encouraged to attend. Patient will be provided with a safe and structured environment. Patient's physical health needs will be addressed by the Hospitalist. Social Assessment will be completed and the Recreation Therapist will work with patient and family to ensure a suitable and safe disposition Medication adjustment will be made as clinically indicated The patient agreed on the treatment plan, understood the risk, benefit, alternative treatment, potential consequence of no treatment, and gave informed consent. (2) Hyperlipidemia Current Visit: No Status: Chronic Qualifiers: Hyperlipidemia type: mixed hyperlipidemia Qualified Code(s): E78.2 - Mixed hyperlipidemia (3) Hypertension Current Visit: No Status: Chronic Qualifiers: Hypertension type: essential hypertension Qualified Code(s): I10 - Essential (primary) hypertension (4) T2DM (type 2 diabetes mellitus) Current Visit: No Status: Chronic Qualifiers: Diabetes mellitus complication status: without complication
[2018-12-24] MEDS ORDERED: WATER FOR INJ Sterile (PF) 10 ML ONE (19:45)
[2018-12-25] MEDS ORDERED: HALDOL IM ONE (02:53)
[2018-12-25] MEDS ORDERED: BENADRYL IM ONE (02:57)
[2018-12-25] MEDS ORDERED: ATIVAN IM ONE (03:00)
[2018-12-25] MEDS: GLUCOPHAGE PO SCH ×2 (07:45→16:29)
[2018-12-25] MEDS: GLUCOTROL PO SCH ×2 (07:45→16:29)
[2018-12-25] MEDS: PEPCID PO SCH (09:03)
--- NOTE | 2018-12-26 07:58 | Progress Note ---
Subjective Date of service: 12/25/18 Principal diagnosis: Paranoid Schizophrenia Subjective Comment: Patient continues to be extremely psychotic, disorganized, agitated, paranoid and restless. She is experiencing auditory, visual and tactile hallucinations. She is not sleeping well. She is accepting medications. Seroquel increased to 400mg bid Objective - Criteria for Continued Treatment Criteria for Continued Treatment: Improving Level of Functioning, Reducing Isolative Behaviors, Understanding Diagnosis and need for Medication, Improving Treatment / Medication Compliance, Confronting Denial of Illness, Stablizing Level of Functioning, Improving Emotional/Socia - Mental Status Mental Status: Oriented x 3 - Objective Observation Participation Level: Minimal Reason(s) For Not Participating: Asocial, Behaviors Assessment and Plan - Patient Problems (1) Paranoid schizophrenia Current Visit: Yes Status: Acute Plan to address problem: Patient will be admitted for inpatient psychiatric evaluation, medication adjustment and close monitoring The patient's behavior, mood, sleep and appetite will be closely monitored. Patient will be enrolled in individual and group therapeutic sessions and encouraged to attend. Patient will be provided with a safe and structured environment. Patient's physical health needs will be addressed by the Hospitalist. Social Assessment will be completed and the Bar Helper will work with patient and family to ensure a suitable and safe disposition Medication adjustment will be made as clinically indicated The patient agreed on the treatment plan, understood the risk, benefit, alternative treatment, potential consequence of no treatment, and gave informed consent. (2) Hyperlipidemia Current Visit: No Status: Chronic Qualifiers: Hyperlipidemia type: mixed hyperlipidemia Qualified Code(s): E78.2 - Mixed hyperlipidemia (3) Hypertension Current Visit: No Status: Chronic Qualifiers: Hypertension type: essential hypertension Qualified Code(s): I10 - Essential (primary) hypertension (4) T2DM (type 2 diabetes mellitus) Current Visit: No Status: Chronic Qualifiers: Diabetes mellitus complication status: without complication
--- NOTE | 2018-12-26 08:01 | Progress Note ---
Subjective Date of service: 12/25/18 Principal diagnosis: Paranoid Schizophrenia Subjective Comment: Patient continues to be extremely psychotic, disorganized, agitated, paranoid and restless. She is experiencing auditory, visual and tactile hallucinations. Objective - Criteria for Continued Treatment Criteria for Continued Treatment: Improving Level of Functioning, Reducing Isolative Behaviors, Understanding Diagnosis and need for Medication, Improving Treatment / Medication Compliance, Confronting Denial of Illness, Stablizing Level of Functioning, Improving Emotional/Socia - Objective Observation Participation Level: Minimal Reason(s) For Not Participating: Asocial, Behaviors Assessment and Plan - Patient Problems (1) Paranoid schizophrenia Current Visit: Yes Status: Acute Plan to address problem: Patient will be admitted for inpatient psychiatric evaluation, medication adjustment and close monitoring The patient's behavior, mood, sleep and appetite will be closely monitored. Patient will be enrolled in individual and group therapeutic sessions and encouraged to attend. Patient will be provided with a safe and structured environment. Patient's physical health needs will be addressed by the Hospitalist. Social Assessment will be completed and the Custodian Blood Bank will work with patient and family to ensure a suitable and safe disposition Medication adjustment will be made as clinically indicated The patient agreed on the treatment plan, understood the risk, benefit, alternative treatment, potential consequence of no treatment, and gave informed consent. (2) Hyperlipidemia Current Visit: No Status: Chronic Qualifiers: Hyperlipidemia type: mixed hyperlipidemia Qualified Code(s): E78.2 - Mixed hyperlipidemia (3) Hypertension Current Visit: No Status: Chronic Qualifiers: Hypertension type: essential hypertension Qualified Code(s): I10 - Essential (primary) hypertension (4) T2DM (type 2 diabetes mellitus) Current Visit: No Status: Chronic Qualifiers: Diabetes mellitus complication status: without complication
[2018-12-26] MEDS: GLUCOTROL PO SCH ×2 (08:44→18:29)
[2018-12-26] MEDS: GLUCOPHAGE PO SCH ×2 (08:45→18:28)
[2018-12-26] MEDS: PEPCID PO SCH (10:00)
[2018-12-26] MEDS: IBUPROFEN PO PRN (21:26)
[2018-12-27] MEDS: PEPCID PO SCH (09:27)
[2018-12-27] MEDS: GLUCOTROL PO SCH (10:19)
[2018-12-27] MEDS: GLUCOPHAGE PO SCH (10:19)
--- NOTE | 2018-12-27 19:18 | Progress Note ---
Subjective Date of service: 12/27/18 Principal diagnosis: Paranoid Schizophrenia Subjective Comment: The patient is slightly improved in that she is accepting her medications but continues to be extremely psychotic. She is disorganized and paranoid. She is experiencing auditory, visual and tactile hallucinations. No reported or observed medication side effects. Review of patient's medical records show that her home medications included Perphenazine 8mg qam and 16mg qhs. Objective - Criteria for Continued Treatment Criteria for Continued Treatment: Improving Level of Functioning, Reducing Isolative Behaviors, Understanding Diagnosis and need for Medication, Improving Treatment / Medication Compliance, Confronting Denial of Illness, Stablizing Level of Functioning - Mental Status Mental Status: Oriented x 3 - Objective Observation Participation Level: Minimal Assessment and Plan - Patient Problems (1) Paranoid schizophrenia Current Visit: Yes Status: Acute Plan to address problem: Patient will be admitted for inpatient psychiatric evaluation, medication adjustment and close monitoring The patient's behavior, mood, sleep and appetite will be closely monitored. Patient will be enrolled in individual and group therapeutic sessions and encouraged to attend. Patient will be provided with a safe and structured environment. Patient's physical health needs will be addressed by the Hospitalist. Social Assessment will be completed and the Document Processor will work with patient and family to ensure a suitable and safe disposition Medication adjustment will be made as clinically indicated Will add Perphenazine 8mg bid. Patient tolerated the medication in the past. The patient agreed on the treatment plan, understood the risk, benefit, alternative treatment, potential consequence of no treatment, and gave informed consent. (2) Hyperlipidemia Current Visit: No Status: Chronic Qualifiers: Hyperlipidemia type: mixed hyperlipidemia Qualified Code(s): E78.2 - Mixed hyperlipidemia (3) Hypertension Current Visit: No Status: Chronic Qualifiers: Hypertension type: essential hypertension Qualified Code(s): I10 - Essential (primary) hypertension (4) T2DM (type 2 diabetes mellitus) Current Visit: No Status: Chronic Qualifiers: Diabetes mellitus complication status: without complication
[2018-12-27] MEDS ORDERED: TRILAFON PO SCH (22:00)
[2018-12-28] MEDS: GLUCOPHAGE PO SCH ×3 (00:19→18:18)
[2018-12-28] MEDS: GLUCOTROL PO SCH ×3 (00:20→18:18)
--- NOTE | 2018-12-28 07:41 | Progress Note ---
Subjective Date of service: 12/28/18 Principal diagnosis: Paranoid Schizophrenia Subjective Comment: The patient refused to take Perphenazine that was started last night but accepted her other medications. She continues to be psychotic but calmer. Nursing staff reports that she slept well last night. She is still disorganized and paranoid. She has auditory, visual and tactile hallucinations. No reported or observed medication side effects. Will discontinue the Perphenazine as she is refusing it. Objective - Criteria for Continued Treatment Criteria for Continued Treatment: Improving Level of Functioning, Reducing Isolative Behaviors, Understanding Diagnosis and need for Medication, Improving Treatment / Medication Compliance, Confronting Denial of Illness, Stablizing Level of Functioning, Improving Emotional/Socia - Mental Status Mental Status: Oriented x 3 - Objective Observation Participation Level: Minimal Assessment and Plan - Patient Problems (1) Paranoid schizophrenia Current Visit: Yes Status: Acute Plan to address problem: Continue inpatient psychiatric treatment for medication adjustment and close monitoring The patient's behavior, mood, sleep and appetite will be closely monitored. Patient will be enrolled in individual and group therapeutic sessions and encouraged to attend. Patient will be provided with a safe and structured environment. Patient's physical health needs will be addressed by the Hospitalist. Social Assessment will be completed and the Auto Servicer will work with patient and family to ensure a suitable and safe disposition Medication adjustment will be made as clinically indicated Perphenazine discontinued The patient agreed on the treatment plan, understood the risk, benefit, alternative treatment, potential consequence of no treatment, and gave informed consent. (2) Hyperlipidemia Current Visit: No Status: Chronic Qualifiers: Hyperlipidemia type: mixed hyperlipidemia Qualified Code(s): E78.2 - Mixed hyperlipidemia (3) Hypertension Current Visit: No Status: Chronic Qualifiers: Hypertension type: essential hypertension Qualified Code(s): I10 - Essential (primary) hypertension (4) T2DM (type 2 diabetes mellitus) Current Visit: No Status: Chronic Qualifiers: Diabetes mellitus complication status: without complication
[2018-12-28] MEDS: PEPCID PO SCH (09:03)
[2018-12-28] MEDS ORDERED: ATIVAN IM SCH (10:45)
[2018-12-28] MEDS ORDERED: BENADRYL IM ONE (11:00)
[2018-12-28] MEDS ORDERED: HALDOL IM ONE (11:00)
--- NOTE | 2018-12-28 21:34 | Progress Note ---
Assessment and Plan - Patient Problems (1) T2DM (type 2 diabetes mellitus) Current Visit: Yes Status: Chronic Qualifiers: Diabetes mellitus correction insulin use: without early childhood coordinator use Plan to address problem: Will add Linagliptin 5 mg po qd---A DPP -4 inhibitor for better control Patient has decent range of BG levels (2) HLD (hyperlipidemia) Current Visit: Yes Status: Chronic Qualifiers: Hyperlipidemia type: mixed hyperlipidemia Qualified Code(s): E78.2 - Mixed hyperlipidemia Plan to address problem: Continue statins (3) GERD (gastroesophageal reflux disease) Current Visit: Yes Status: Chronic Qualifiers: Esophagitis presence: without esophagitis Qualified Code(s): K21.9 - Gastro-esophageal reflux disease without esophagitis Plan to address problem: Continue famotidine (4) DVT prophylaxis Current Visit: No Status: Acute Plan to address problem: Lovenox 30 mg subcutaneous daily Subjective Date of service: 12/28/18 Principal diagnosis: Paranoid Schizophrenia Interval history: BG levels uncontrolled. Patient watching TV Refuses insulin for coverage Doing well otherwise Objective - Constitutional General appearance: Present: no acute distress, well-nourished - EENT Eyes: PERRL, EOM intact ENT: hearing intact, clear oral mucosa Ears: bilateral: normal - Neck Neck: supple, normal ROM - Respiratory Respiratory effort: normal Respiratory: bilateral: CTA - Breasts Breasts: normal - Cardiovascular Rhythm: regular Heart Sounds: Present: S1 & S2. Absent: gallop, rub Extremities: pulses intact, No edema, normal color, Full ROM - Gastrointestinal General gastrointestinal: Present: soft, non-tender, non-distended, normal bowel sounds - Genitourinary Female genitourinary: normal - Integumentary Integumentary: clear, warm, dry - Musculoskeletal Musculoskeletal: 1, strength equal bilaterally - Neurologic Neurologic: moves all extremities - Psychiatric Psychiatric: memory intact, appropriate mood/affect, intact judgment & insight - Labs Labs: Abnormal lab results 12/28/18 12/28/18 Range/Units 09:13 17:34 POC Glucose 167 H 156 H (70-105)
[2018-12-28] MEDS: TRADJENTA PO SCH (21:49)
[2018-12-28] MEDS ORDERED: METFORMIN 1000 MG PO SCH (22:00)
[2018-12-28] MEDS ORDERED: LOVENOX SUB-Q SCH (22:00)
[2018-12-29] MEDS: TRADJENTA PO SCH (09:33)
[2018-12-29] MEDS: PEPCID PO SCH (09:38)
[2018-12-29] MEDS: GLUCOPHAGE PO SCH ×3 (09:39→19:10)
[2018-12-29] MEDS: GLUCOTROL PO SCH ×2 (09:39→19:12)
--- NOTE | 2018-12-29 09:55 | Progress Note ---
Subjective Date of service: 12/29/18 Principal diagnosis: Paranoid Schizophrenia Subjective Comment: Patient refuses to allow Staff check her vital signs, including her BP, because of her delusions that the instruments will pass electricity into her system. She refuses to take Linagliptin which was added yesterday for better blood glucose. She is insisting on taking Metformin and Glipizide which she was taking at home. She requests to be started on Lorazepam to slow down her thoughts. She continues to be psychotic. She is disorganized and paranoid. She has auditory, visual and tactile hallucinations. No reported or observed medication side effects. Objective - Criteria for Continued Treatment Criteria for Continued Treatment: Improving Level of Functioning, Reducing Isolative Behaviors, Understanding Diagnosis and need for Medication, Improving Treatment / Medication Compliance, Confronting Denial of Illness, Stablizing Level of Functioning, Improving Emotional/Socia - Mental Status Mental Status: Oriented x 3 - Objective Observation Participation Level: Minimal Assessment and Plan - Patient Problems (1) Paranoid schizophrenia Current Visit: Yes Status: Acute Plan to address problem: Continue inpatient psychiatric treatment for medication adjustment and close monitoring The patient's behavior, mood, sleep and appetite will be closely monitored. Patient will be enrolled in individual and group therapeutic sessions and encouraged to attend. Patient will be provided with a safe and structured environment. Patient's physical health needs will be addressed by the Hospitalist. Social Assessment will be completed and the Clerical Manager will work with patient and family to ensure a suitable and safe disposition Medication adjustment will be made as clinically indicated Lorazepam 2mg x1 Start Clonazepam 0.5mg bid The patient agreed on the treatment plan, understood the risk, benefit, alternative treatment, potential consequence of no treatment, and gave informed consent. (2) Hyperlipidemia Current Visit: No Status: Chronic Qualifiers: Hyperlipidemia type: mixed hyperlipidemia Qualified Code(s): E78.2 - Mixed hyperlipidemia (3) Hypertension Current Visit: No Status: Chronic Qualifiers: Hypertension type: essential hypertension Qualified Code(s): I10 - Essential (primary) hypertension (4) T2DM (type 2 diabetes mellitus) Current Visit: No Status: Chronic Qualifiers: Diabetes mellitus complication status: without complication
[2018-12-29] MEDS ORDERED: ATIVAN PO ONE (12:10)
[2018-12-29] MEDS: LOVENOX SUB-Q SCH (21:31)
[2018-12-30] MEDS: PEPCID PO SCH (09:22)
[2018-12-30] MEDS: GLUCOPHAGE PO SCH (09:22)
--- NOTE | 2018-12-30 10:04 | Progress Note ---
Subjective Date of service: 12/30/18 Principal diagnosis: Paranoid Schizophrenia Subjective Comment: Patient refused to take prescribed Clonazepam and refused o allow Staff check her vital signs, including her BP, because she is paranoid. She continues to be psychotic. She is disorganized and paranoid. She has auditory, visual and tactile hallucinations. No reported or observed medication side effects. No SH/HI Objective - Criteria for Continued Treatment Criteria for Continued Treatment: Improving Level of Functioning, Reducing Isolative Behaviors, Understanding Diagnosis and need for Medication, Improving Treatment / Medication Compliance, Confronting Denial of Illness, Stablizing Level of Functioning, Improving Emotional/Socia - Mental Status Mental Status: Oriented x 3 - Objective Observation Participation Level: Minimal Assessment and Plan - Patient Problems (1) Paranoid schizophrenia Current Visit: Yes Status: Acute Plan to address problem: Continue inpatient psychiatric treatment for medication adjustment and close monitoring The patient's behavior, mood, sleep and appetite will be closely monitored. Patient will be enrolled in individual and group therapeutic sessions and encouraged to attend. Patient will be provided with a safe and structured environment. Patient's physical health needs will be addressed by the Hospitalist. Social Assessment will be completed and the Telephonic Nurse Case Manager will work with patient and family to ensure a suitable and safe disposition Medication adjustment will be made as clinically indicated Discontinue Clonazepam and start Lorazepam 0.5mg bid for a short period. The patient agreed on the treatment plan, understood the risk, benefit, alternative treatment, potential consequence of no treatment, and gave informed consent. (2) Hyperlipidemia Current Visit: No Status: Chronic Qualifiers: Hyperlipidemia type: mixed hyperlipidemia Qualified Code(s): E78.2 - Mixed hyperlipidemia (3) Hypertension Current Visit: No Status: Chronic Qualifiers: Hypertension type: essential hypertension Qualified Code(s): I10 - Essential (primary) hypertension (4) T2DM (type 2 diabetes mellitus) Current Visit: No Status: Chronic Qualifiers: Diabetes mellitus complication status: without complication
[2018-12-30] MEDS: ATIVAN PO SCH ×2 (11:07→21:46)
[2018-12-31] MEDS: IBUPROFEN PO PRN ×2 (00:37→22:19)
[2018-12-31] MEDS: LOVENOX SUB-Q SCH ×2 (00:59→22:09)
[2018-12-31] MEDS: ATIVAN PO SCH ×5 (09:30→22:08)
[2018-12-31] MEDS: PEPCID PO SCH (09:30)
[2018-12-31] MEDS: GLUCOPHAGE PO SCH (09:30)
--- NOTE | 2018-12-31 09:40 | Progress Note ---
Subjective Date of service: 12/31/18 Principal diagnosis: Paranoid Schizophrenia Subjective Comment: Patient continues to be very psychotic, agitated, disorganized and paranoid. She has auditory, visual and tactile hallucinations. She is hyperactive, loud and talkative. Lorazepam 0.5mg was added yesterday. I will increase Lorazepam to 1mg qid for its calming effect. No reported or observed medication side effects. No SH/HI Objective - Criteria for Continued Treatment Criteria for Continued Treatment: Improving Level of Functioning, Reducing Isolative Behaviors, Understanding Diagnosis and need for Medication, Improving Treatment / Medication Compliance, Confronting Denial of Illness, Stablizing Level of Functioning, Improving Emotional/Socia - Mental Status Mental Status: Oriented x 3 - Objective Observation Participation Level: Minimal Assessment and Plan - Patient Problems (1) Paranoid schizophrenia Current Visit: Yes Status: Acute Plan to address problem: Continue inpatient psychiatric treatment for medication adjustment and close monitoring The patient's behavior, mood, sleep and appetite will be closely monitored. Patient will be enrolled in individual and group therapeutic sessions and encour aged to attend. Patient will be provided with a safe and structured environment. Patient's physical health needs will be addressed by the Hospitalist. Social Assessment will be completed and the Orthopedics Teacher will work with patient and family to ensure a suitable and safe disposition Medication adjustment will be made as clinically indicated Increase Lorazepam to 1mg qid Add PRN Haldol, Lorazepam and Diphenhydramine for agitation The patient agreed on the treatment plan, understood the risk, benefit, alternative treatment, potential consequence of no treatment, and gave informed consent. (2) Hyperlipidemia Current Visit: No Status: Chronic Qualifiers: Hyperlipidemia type: mixed hyperlipidemia Qualified Code(s): E78.2 - Mixed hyperlipidemia (3) Hypertension Current Visit: No Status: Chronic Qualifiers: Hypertension type: essential hypertension Qualified Code(s): I10 - Essential (primary) hypertension (4) T2DM (type 2 diabetes mellitus) Current Visit: No Status: Chronic Qualifiers: Diabetes mellitus complication status: without complication
[2018-12-31] MEDS ORDERED: HALDOL IM PRN (09:42)
[2018-12-31] MEDS ORDERED: ATIVAN IM PRN (09:44)
[2018-12-31] MEDS ORDERED: BENADRYL IM PRN (09:47)
[2018-12-31] MEDS ORDERED: ATIVAN PO NR (10:00)
--- NOTE | 2019-01-01 08:32 | Progress Note ---
Subjective Date of service: 01/01/19 Principal diagnosis: Paranoid Schizophrenia Subjective Comment: Patient is improving. She denies auditory hallucinations, she is still agitated, disorganized and paranoid. No reported or observed medication side effects. No SH/HI Objective - Criteria for Continued Treatment Criteria for Continued Treatment: Improving Level of Functioning, Reducing Isolative Behaviors, Understanding Diagnosis and need for Medication, Improving Treatment / Medication Compliance, Confronting Denial of Illness, Stablizing Level of Functioning, Improving Emotional/Socia - Mental Status Mental Status: Oriented x 3 - Objective Observation Participation Level: Minimal Assessment and Plan - Patient Problems (1) Paranoid schizophrenia Current Visit: Yes Status: Acute Plan to address problem: Continue inpatient psychiatric treatment for medication adjustment and close monitoring The patient's behavior, mood, sleep and appetite will be closely monitored. Patient will be enrolled in individual and group therapeutic sessions and encouraged to attend. Patient will be provided with a safe and structured environment. Patient's physical health needs will be addressed by the Hospitalist. Social Assessment will be completed and the Addiction Counselor will work with patient and family to ensure a suitable and safe disposition Medication adjustment will be made as clinically indicated The patient agreed on the treatment plan, understood the risk, benefit, alternative treatment, potential consequence of no treatment, and gave informed consent. (2) Hyperlipidemia Current Visit: No Status: Chronic Qualifiers: Hyperlipidemia type: mixed hyperlipidemia Qualified Code(s): E78.2 - Mixed hyperlipidemia (3) Hypertension Current Visit: No Status: Chronic Qualifiers: Hypertension type: essential hypertension Qualified Code(s): I10 - Essential (primary) hypertension (4) T2DM (type 2 diabetes mellitus) Current Visit: No Status: Chronic Qualifiers: Diabetes mellitus complication status: without complication
[2019-01-01] MEDS: PEPCID PO SCH (09:38)
[2019-01-01] MEDS: GLUCOPHAGE PO SCH (09:38)
[2019-01-01] MEDS: ATIVAN PO SCH ×4 (09:38→23:01)
[2019-01-01] MEDS: LOVENOX SUB-Q SCH (22:36)
[2019-01-02] MEDS: ATIVAN PO SCH ×4 (09:52→21:21)
[2019-01-02] MEDS: PEPCID PO SCH (09:53)
[2019-01-02] MEDS: GLUCOPHAGE PO SCH (09:53)
--- NOTE | 2019-01-02 11:25 | Progress Note ---
Subjective Principal diagnosis: Paranoid Schizophrenia Subjective Comment: Patient continues to improve. She is calmer and more organized. She is concerned about her homelessness. She denies auditory hallucinations, but has tactile hallucinations (electricity shocks) and she remains paranoid. No reported or observed medication side effects. No SH/HI Objective - Criteria for Continued Treatment Criteria for Continued Treatment: Improving Level of Functioning, Reducing Isolative Behaviors, Understanding Diagnosis and need for Medication, Improving Treatment / Medication Compliance, Stablizing Level of Functioning, Improving Emotional/Socia - Mental Status Mental Status: Oriented x 3 - Objective Observation Participation Level: Minimal Assessment and Plan - Patient Problems (1) Paranoid schizophrenia Current Visit: Yes Status: Acute Plan to address problem: Continue inpatient psychiatric treatment for medication adjustment and close monitoring The patient's behavior, mood, sleep and appetite will be closely monitored. Patient will be enrolled in individual and group therapeutic sessions and encouraged to attend. Patient will be provided with a safe and structured environment. Patient's physical health needs will be addressed by the Hospitalist. Social Assessment will be completed and the Area Captain will work with patient and family to ensure a suitable and safe disposition Medication adjustment will be made as clinically indicated The patient agreed on the treatment plan, understood the risk, benefit, alternative treatment, potential consequence of no treatment, and gave informed consent. (2) Hyperlipidemia Current Visit: No Status: Chronic Qualifiers: Hyperlipidemia type: mixed hyperlipidemia Qualified Code(s): E78.2 - Mixed hyperlipidemia (3) Hypertension Current Visit: No Status: Chronic Qualifiers: Hypertension type: essential hypertension Qualified Code(s): I10 - Essential (primary) hypertension (4) T2DM (type 2 diabetes mellitus) Current Visit: No Status: Chronic Qualifiers: Diabetes mellitus complication status: without complication
[2019-01-02] MEDS: LOVENOX SUB-Q SCH (21:18)
[2019-01-02] MEDS: IBUPROFEN PO PRN (21:19)
[2019-01-03] MEDS: GLUCOPHAGE PO SCH (09:28)
[2019-01-03] MEDS: ATIVAN PO SCH ×4 (09:28→21:49)
[2019-01-03] MEDS: PEPCID PO SCH (09:29)
--- NOTE | 2019-01-03 10:14 | Progress Note ---
Subjective Date of service: 01/03/19 Principal diagnosis: Paranoid Schizophrenia Subjective Comment: Patient continues to improve. She is calmer and more organized. She denies auditory hallucinations, but has tactile hallucinations (electricity shocks). She feels safe going home tomorrow. No reported or observed medication side effects. No SH/HI. Possible discharge in am tomorrow Objective - Criteria for Continued Treatment Criteria for Continued Treatment: Stablizing Level of Functioning - Mental Status Mental Status: Oriented x 3 - Objective Observation Participation Level: Moderate Assessment and Plan - Patient Problems (1) Paranoid schizophrenia Current Visit: Yes Status: Acute Plan to address problem: Continue inpatient psychiatric treatment for medication adjustment and close monitoring The patient's behavior, mood, sleep and appetite will be closely monitored. Patient will be enrolled in individual and group therapeutic sessions and encouraged to attend. Patient will be provided with a safe and structured environment. Patient's physical health needs will be addressed by the Hospitalist. Social Assessment will be completed and the Hand Developer will work with patient and family to ensure a suitable and safe disposition Medication adjustment will be made as clinically indicated The patient agreed on the treatment plan, understood the risk, benefit, alternative treatment, potential consequence of no treatment, and gave informed consent. (2) Hyperlipidemia Current Visit: No Status: Chronic Qualifiers: Hyperlipidemia type: mixed hyperlipidemia Qualified Code(s): E78.2 - Mixed hyperlipidemia (3) Hypertension Current Visit: No Status: Chronic Qualifiers: Hypertension type: essential hypertension Qualified Code(s): I10 - Essential (primary) hypertension (4) T2DM (type 2 diabetes mellitus) Current Visit: No Status: Chronic Qualifiers: Diabetes mellitus complication status: without complication
[2019-01-04] MEDS: LOVENOX SUB-Q SCH (02:05)
[2019-01-04] MEDS: ATIVAN PO SCH ×2 (09:37→13:17)
[2019-01-04] MEDS: GLUCOPHAGE PO SCH (09:37)
[2019-01-04] MEDS: PEPCID PO SCH (09:37)
--- NOTE | 2019-01-04 12:01 | Discharge Summary ---
Providers - Providers Date of Admission: 12/22/18 17:53 Date of discharge: 01/04/19 Attending physician: EMEKA TOVAR MD 12/22/18 17:28 Consult to Physician [CONS] Routine Comment: Consulting Provider: INNA RAMÍREZ Physician Instructions: Medical Clearance Reason For Exam: New Admit 12/28/18 08:37 Consult to Physician [CONS] Routine Comment: Consulting Provider: SUE YEE Physician Instructions: Reason For Exam: Unstable blood sugars Primary care physician: FELICIANO CEDILLO Hospitalization Reason for admission: Manic, psychotic, confused and unable to care for self. Admitting Diagnosis: F25.0 - SCHIZOAFFECTIVE DISORDER, BIPOLAR TYPE Condition: Good Hospital course: The patient was provided inpatient psychiatric treatment with safe and supportive environment, group therapy, individual counseling, psychiatric medication, medication adjustment, adverse effect monitor, medical evaluation, medical treatment, social service assessment, family/social support meeting, placement assessment and psycho-education. The patients mood, anxiety, thoughts, stress management skill, cognition, impulse/anger control, motivation, understanding of disease, compliance to treatment and appreciation on family/social support are improved and stabilized. At the time of discharge, the patient had no suicidal ideas, no homicidal ideas, no aggressive thoughts, no endangering behavior and no debilitating adverse effects. The patient agreed on the treatment plan, understood the risk, benefit, alternative treatment, potential consequence of no treatment, and gave informed consent. The patient was advised to be compliant with medications, not to use drugs and not to drink alcohol. The patient understands that if suicidal ideas, homicidal ideas, or any endangering thoughts arise, the patient should immediately seek for emergent assistance including but not limited to crisis hot line and emergency room. Follow up with out-patient Psychiatrist and PCP within 14 - 21 days of discharge. Disposition: - TO HOME OR SELFCARE Time spent for discharge: 38 minutes Allergies/Adverse Reactions: Allergies Penicillins Allergy (Verified 12/06/18 19:57) Unknown Vital Signs: Last Vital Signs Temp Pulse Resp 18 01/02/19 21:19 BP Pulse Ox Last Lab: Laboratory Last Values POC Glucose 165 (70-105) H 01/04/19 07:11 - Discharge Diagnoses (1) Paranoid schizophrenia Status: Acute (2) Hyperlipidemia Status: Chronic Qualifiers: Hyperlipidemia type: mixed hyperlipidemia Qualified Code(s): E78.2 - Mixed hyperlipidemia (3) Hypertension Status: Chronic Qualifiers: Hypertension type: essential hypertension Qualified Code(s): I10 - Essential (primary) hypertension (4) T2DM (type 2 diabetes mellitus) Status: Chronic Qualifiers: Diabetes mellitus complication status: without complication Core Measure Documentation - Palliative Care Palliative Care/ Comfort Measures: Not Applicable - Core Measures Any of the following diagnoses?: stroke, none - VTE Discharge Requirements Deep Vein Thrombosis/Pulmonary Embolism Present on Admission: No Contraindication No Overlap Therapy order at DC: Not Indicated - Acute CA Discharge Requirements Aspirin at discharge: No Reason for no aspirin on DC: Medical contraindication - Stroke Discharge Requirements Statin for LDL = or >70 mg/dl on DC: Not Applicable Anticoag for atrial fib/atrial flutter: Not Applicable Antithrombotic for ischemic stroke: No Reason for no antithrombotic on DC: Not Indicated Exam - Constitutional Vitals: Temp Pulse Resp BP Pulse Ox 18 01/02/19 21:19 - EENT Eyes: Present: PERRL ENT: hearing intact, clear oral mucosa - Neck Neck: Present: supple - Respiratory Respiratory effort: normal - Extremities Extremities: no ischemia, No edema, normal color - Psychiatric Psychiatric: appropriate mood/affect, intact judgment & insight Plan Activity: no restrictions Weight Bearing Status: Weight Bear as Tolerated Diet: regular Follow up with: FELICIANO CEDILLO MD [Primary Care Provider] - 7 Days Prescriptions: Simvastatin 20 mg PO QHS #30 tablet LORazepam [Ativan] 0.5 mg PO BID #60 tablet Benztropine [Cogentin] 1 mg PO BID #60 tablet glipiZIDE [Glipizide] 5 mg PO BID #60 tablet Glucophage 500 mg pe PO QAM #30 metFORMIN [Glucophage] 1,000 mg PO QPM #60 tablet Famotidine [Pepcid] 20 mg PO DAILY #30 tablet Quetiapine Fumarate [Seroquel] 400 mg PO BID 30 Days #120 tablet
== END 2019-01-04 14:06 | disposition home or self-care (01) | DRG 885 ==
LOC: 3A 16:08 → UNDOADMIN 16:08 → 5A 17:53
PROVIDERS: ADMIT Psychiatry & Neurology Psychiatry; ATTEND Psychiatry & Neurology Psychiatry
DX: F20.0 Paranoid schizophrenia (principal); Z68.42 Body mass index [BMI] 45.0-49.9, adult; E66.01 Morbid (severe) obesity due to excess calories; F31.9 Bipolar disorder, unspecified; I10 Essential (primary) hypertension; E78.2 Mixed hyperlipidemia; K21.9 Gastro-esophageal reflux disease without esophagitis; E11.9 Type 2 diabetes mellitus without complications; E78.5 Hyperlipidemia, unspecified; F17.200 Nicotine dependence, unspecified, uncomplicated; Z82.49 Family history of ischemic heart disease and other diseases of the circulatory system; Z88.0 Allergy status to penicillin; Z79.899 Other long term (current) drug therapy; Z79.84 Long term (current) use of oral hypoglycemic drugs
CPT/HCPCS: 36415; 80053; 80178; 80320; 82962; 85025; 96372; 99284; G0378; G0480; J1200; J1630; J1650; J2060; J3486